=== PATIENT | female | born 1955 | race Caucasian/White ===

== ENCOUNTER 2020-05-23 11:45 | Inpatient (IN) | payer MEDICARE, OTHER, SELFPAY ==
[2020-05-23] VITALS (48 sets, daily range): BP systolic 123–156; BP diastolic 69–87; PULSE 72–107; RESP 14–35; TEMP 38.3; O2SAT 87–99
--- NOTE | 2020-05-23 11:49 | W.ED.SOB ---
HPI - SOB/Dyspnea General: Chief Complaint: Shortness of Breath/Dyspnea Stated Complaint: FEVER, COUGH, SOB Time Seen by Provider: 05/23/20 11:48 History of Present Illness: HPI Narrative: 64-year-old female comes in complaining of cough and shortness of breath. She talked her primary care doctor earlier in the week and recommended self quarantining. She is not been tested for COVID 19 at this point. Patient states started having symptoms about 2 days ago. She had a productive cough with thick white mucus. She feels like it is she she has the flu or might severe body aches all over. States her also has a fever but does not have a cough. She is also had some nausea. She has had loss of appetite. Decreased sense of taste and smell. She was seen in [place] in the emergency room 2 days ago in the evening there was a UA done but she was not ever seen she left with from the emergency emergency room waiting room without being seen they did call in some Bactrim for her which she did strip picker and start taking she is not been having any dysuria urgency or frequency since. MD elicited complaint: shortness of breath and cough Pertinent past history: other (Rheumatoid arthritis) Onset (ago): day(s) (2) Context: recent illness (Recently started treatment for cystitis) Timing: constant Severity: moderate Exacerbating factors: exertion, movement and coughing Relieving factors: nothing Associated symptoms: Reports chest congestion, chest pain, cough, dizziness, fever(s), lightheadedness, myalgias and nausea Treatment prior to arrival: none Review of Systems Const: Reports: fever(s) ENMT: Denies: throat pain, ear or mastoid pain, nasal discharge or nasal congestion Card: Reports: chest pain and lightheadedness Resp: Reports: chest congestion GI: Reports: nausea : Denies: flank pain, difficulty voiding, dysuria, urinary frequency or urinary urgency Skin/Breast: Denies: rash or pruritus Neuro: Reports: dizziness PFSH ED PFSH: Medical History (Updated 05/26/20 @ 07:32 by Vahe Santamaria DO) Elevated lipase Being worked up through primary care Hypothyroidism Rheumatoid arthritis Surgical History (Updated 05/23/20 @ 14:14 by Vahe Santamaria DO) H/O: hysterectomy Social History (Updated 05/23/20 @ 14:14 by OMERO Rothman Smoking and tobacco status: never smoked Alcohol intake: never Substance/Drug Use: never Physical Exam Const: COMMON NORMALS: no acute distress GENERAL APPEARANCE: cooperative and comfortable ORIENTATION/CONSCIOUSNESS: Yes awake, Yes oriented to person, Yes oriented to place and Yes oriented to time HENMT: COMMON NORMALS: normocephalic, atraumatic, hearing grossly normal bilaterally, external ears normal, EAC's normal, TM's normal bilaterally, Normal nasal mucous membranes and turbinates present, moist oral mucous membranes and oropharynx normal HEAD & SCALP: normocephalic and atraumatic NOSE: Normal nasal mucous membranes and turbinates present EXTERNAL EAR: Yes external ears normal EXTERNAL AUDITORY CANAL: EAC's normal TYMPANIC MEMBRANE: TM's normal bilaterally Eye: COMMON NORMALS: Equal, round and reactive pupils present, EOMs intact bilaterally, conjunctivae normal and no scleral icterus CONJUNCTIVA: Yes conjunctivae normal PUPIL: Yes Equal, round and reactive pupils present Neck/C-Spine: COMMON NORMALS: full ROM, no lymphadenopathy, supple and no JVD Lymph: LYMPHATIC: no lymphadenopathy noted and no lymphedema noted Resp: COMMON NORMALS: normal respiratory effort, No retractions, No use of accessory muscles and clear to auscultation bilaterally AUSCULTATION: clear to auscultation bilaterally Cardio: COMMON NORMALS: no JVD, regular rate, regular rhythm and No murmurs present (Cardio) RATE: regular rate RHYTHM: regular rhythm GI: COMMON NORMALS: Soft to palpation and No hepatosplenomegaly present AUSCULTATION: Yes normoactive bowel sounds PALPATION: Yes Soft to palpation, No Tenderness to palpation present (GI), No Guarding due to palpation present (GI) and Yes No hepatosplenomegaly present Extremity: COMMON NORMALS: normal to inspection, capillary refill normal, no clubbing, cyanosis or edema, no calf tenderness and no pedal edema Neuro: SENSORIUM/ORIENTATION: Yes oriented to person, Yes oriented to place and Yes oriented to time Skin: COMMON NORMALS: no rashes or lesions noted GENERAL SKIN EXAM: no rashes or lesions noted Course Vital Signs: Vital signs: Vital Signs Temperature 98.0 F 05/24/20 19:26 Pulse Rate 78 05/24/20 19:26 Respiratory Rate 18 05/24/20 19:26 Blood Pressure 120/74 05/24/20 19:26 Pulse Oximetry 98 05/24/20 19:26 MDM - SOB/Dyspnea MDM Narrative: Medical decision making narrative: Significant concern for COVID. Patient will be admitted for respiratory support she is under COVID precautions with droplet precautions. Discussed with Dr. Mcclain. Lab Data: Labs: Lab Results 05/23/20 05/23/20 05/23/20 Range/Units 12:04 12:04 12:04 WBC 5.1 (4.0-10.0) 10^3/ uL RBC 4.30 (4.1-5.3) 10^6/u L Hgb 13.1 (11.5-15.3) g/dL Hct 40.5 (37.0-47.0) % MCV 94.2 (81-99) fL MCH 30.5 (28.0-34.0) pg MCHC 32.3 (30.0-36.0) g/dL RDW 14.4 (12.1-15.1) % Plt Count 152 (130-400) 10^3/c mm MPV 11.3 H (7.4-10.4) fL Neut % (Auto) 73.5 % Lymph % (Auto) 14.7 % [place] % (Auto) 11.4 % Eos % (Auto) 0.0 % Baso % (Auto) 0.2 % Neut # (Auto) 3.76 (1.8-7.7) 10^3/u L Lymph # (Auto) 0.8 (0.8-4.8) 10^3/u L [place] # (Auto) 0.6 (0.2-0.9) 10^3/u L Eos # (Auto) 0.0 (0.0-0.8) 10^3/u L Baso # (Auto) 0.0 (0.0-0.1) 10^3/u L Nucleated RBC % (a uto) 0 % Nucleated RBCs # 0.0 /100WBC Fibrinogen 240 (184-529) mg/dL D-Dimer 0.87 H (0-0.59) ug/mIFE U Specimen Type Sample Site ABG pH (7.35-7.45) ABG pCO2 (35-45) mmHg ABG pO2 (80.0-100.0) mmH g ABG HCO3 (22-26) mmol/L ABG O2 Saturation ABG Base Excess (-2.0-2.0) mmol/ L Jaden Test A-a O2 Gradient (5-10) mmHg Hematocrit (37-47) % Hgb O2 Saturation (95-100) % Carboxyhemoglobin (0.4-20.1) %THgb Methemoglobin (0.4-1.5) % Total Hemoglobin (12-16) g/dL Ionized Calcium (1.1-1.4) mmol/L O2 Delivery Device FiO2 % Public Health Aides Teacher ID Sodium 137 (136-145) mmol/L Potassium 3.6 (3.5-5.1) mmol/L Chloride 103 (98-107) mmol/L Carbon Dioxide 24 (22-29) mmol/L Anion Gap 13.6 (5-19) BUN 7 L (8-23) mg/dL Creatinine 0.9 (0.5-0.9) mg/dL GFR Calculation 63.0 L (90-130) mL/min Glucose 97 (65-115) mg/dL Calculated Osmolal ity 280 L (285-295) mOsm/k g Lactic Acid (0.5-2.2) mmol/L Calcium 8.7 (8.5-10.5) mg/dL Ferritin 105 (15-150) ng/mL Total Bilirubin 0.4 (0.15-1.2) mg/dL AST 31 (0-32) U/L ALT 18 (0-33) U/L Alkaline Phosphata se 51 (35-105) IU/L Lactate Dehydrogen ase 321 H (135-214) U/L Creatine Kinase 231 H (26-192) U/L C-Reactive Protein 14.1 H (0.0-4.9) mg/L NT-Pro-B Natriuret Pep 476 H (0-125) pg/mL Total Protein 6.3 L (6.6-8.7) g/dL Albumin 4.1 (3.5-5.2) g/dL Globulin 2.2 (1.3-4.6) g/dL Procalcitonin 0.06 (0-0.5) ng/mL Nasal/Oral COVID-1 9 PCR Influenza Type A A g (Negative) Influenza Type B A g (Negative) 05/23/20 05/23/20 05/23/20 Range/Units 12:04 12:18 13:35 WBC (4.0-10.0) 10^3/ uL RBC (4.1-5.3) 10^6/u L Hgb (11.5-15.3) g/dL Hct (37.0-47.0) % MCV (81-99) fL MCH (28.0-34.0) pg MCHC (30.0-36.0) g/dL RDW (12.1-15.1) % Plt Count (130-400) 10^3/c mm MPV (7.4-10.4) fL Neut % (Auto) % Lymph % (Auto) % [place] % (Auto) % Eos % (Auto) % Baso % (Auto) % Neut # (Auto) (1.8-7.7) 10^3/u L Lymph # (Auto) (0.8-4.8) 10^3/u L [place] # (Auto) (0.2-0.9) 10^3/u L Eos # (Auto) (0.0-0.8) 10^3/u L Baso # (Auto) (0.0-0.1) 10^3/u L Nucleated RBC % (a uto) % Nucleated RBCs # /100WBC Fibrinogen (184-529) mg/dL D-Dimer (0-0.59) ug/mIFE U Specimen Type Arterial Sample Site Radial, right ABG pH 7.48 H (7.35-7.45) ABG pCO2 31.2 L (35-45) mmHg ABG pO2 60.2 L (80.0-100.0) mmH g ABG HCO3 23.2 (22-26) mmol/L ABG O2 Saturation 93.9 ABG Base Excess 0.4 (-2.0-2.0) mmol/ L Jaden Test Pos A-a O2 Gradient 49.3 H (5-10) mmHg Hematocrit 40.2 (37-47) % Hgb O2 Saturation 93.2 L (95-100) % Carboxyhemoglobin 0.7 (0.4-20.1) %THgb Methemoglobin 0.1 L (0.4-1.5) % Total Hemoglobin 13.1 (12-16) g/dL Ionized Calcium 1.1 (1.1-1.4) mmol/L O2 Delivery Device None FiO2 21.0 % Public Health Aides Teacher ID ed Sodium 139.0 (136-145) mmol/L Potassium 3.5 (3.5-5.1) mmol/L Chloride (98-107) mmol/L Carbon Dioxide (22-29) mmol/L Anion Gap (5-19) BUN (8-23) mg/dL Creatinine (0.5-0.9) mg/dL GFR Calculation (90-130) mL/min Glucose 95.0 (65-115) mg/dL Calculated Osmolal ity (285-295) mOsm/k g Lactic Acid 1.5 (0.5-2.2) mmol/L Calcium (8.5-10.5) mg/dL Ferritin (15-150) ng/mL Total Bilirubin (0.15-1.2) mg/dL AST (0-32) U/L ALT (0-33) U/L Alkaline Phosphata se (35-105) IU/L Lactate Dehydrogen ase (135-214) U/L Creatine Kinase (26-192) U/L C-Reactive Protein (0.0-4.9) mg/L NT-Pro-B Natriuret Pep (0-125) pg/mL Total Protein (6.6-8.7) g/dL Albumin (3.5-5.2) g/dL Globulin (1.3-4.6) g/dL Procalcitonin (0-0.5) ng/mL Nasal/Oral COVID-1 9 PCR Detected Influenza Type A A g (Negative) Influenza Type B A g (Negative) 05/23/20 Range/Units 14:00 WBC (4.0-10.0) 10^3/ uL RBC (4.1-5.3) 10^6/u L Hgb (11.5-15.3) g/dL Hct (37.0-47.0) % MCV (81-99) fL MCH (28.0-34.0) pg MCHC (30.0-36.0) g/dL RDW (12.1-15.1) % Plt Count (130-400) 10^3/c mm MPV (7.4-10.4) fL Neut % (Auto) % Lymph % (Auto) % [place] % (Auto) % Eos % (Auto) % Baso % (Auto) % Neut # (Auto) (1.8-7.7) 10^3/u L Lymph # (Auto) (0.8-4.8) 10^3/u L [place] # (Auto) (0.2-0.9) 10^3/u L Eos # (Auto) (0.0-0.8) 10^3/u L Baso # (Auto) (0.0-0.1) 10^3/u L Nucleated RBC % (a uto) % Nucleated RBCs # /100WBC Fibrinogen (184-529) mg/dL D-Dimer (0-0.59) ug/mIFE U Specimen Type Sample Site ABG pH (7.35-7.45) ABG pCO2 (35-45) mmHg ABG pO2 (80.0-100.0) mmH g ABG HCO3 (22-26) mmol/L ABG O2 Saturation ABG Base Excess (-2.0-2.0) mmol/ L Jaden Test A-a O2 Gradient (5-10) mmHg Hematocrit (37-47) % Hgb O2 Saturation (95-100) % Carboxyhemoglobin (0.4-20.1) %THgb Methemoglobin (0.4-1.5) % Total Hemoglobin (12-16) g/dL Ionized Calcium (1.1-1.4) mmol/L O2 Delivery Device FiO2 % Public Health Aides Teacher ID Sodium (136-145) mmol/L Potassium (3.5-5.1) mmol/L Chloride (98-107) mmol/L Carbon Dioxide (22-29) mmol/L Anion Gap (5-19) BUN (8-23) mg/dL Creatinine (0.5-0.9) mg/dL GFR Calculation (90-130) mL/min Glucose (65-115) mg/dL Calculated Osmolal ity (285-295) mOsm/k g Lactic Acid (0.5-2.2) mmol/L Calcium (8.5-10.5) mg/dL Ferritin (15-150) ng/mL Total Bilirubin (0.15-1.2) mg/dL AST (0-32) U/L ALT (0-33) U/L Alkaline Phosphata se (35-105) IU/L Lactate Dehydrogen ase (135-214) U/L Creatine Kinase (26-192) U/L C-Reactive Protein (0.0-4.9) mg/L NT-Pro-B Natriuret Pep (0-125) pg/mL Total Protein (6.6-8.7) g/dL Albumin (3.5-5.2) g/dL Globulin (1.3-4.6) g/dL Procalcitonin (0-0.5) ng/mL Nasal/Oral COVID-1 9 PCR Influenza Type A A g Negative (Negative) Influenza Type B A g Negative (Negative) Discharge Plan Discharge Patient Disposition: Placed in Observation Admit Provider: Dennis Winkler Clinical Impression: Pneumonitis, COVID-19 virus test result unknown, Rheumatoid arthritis, Immunocompromised patient, Elevated lipase Condition: Stable Discharge Diet: Regular Discharge Activity: Resume usual activity Interventions: ED Discharge Assessment Last Done: 05/23/20 17:39 ED Charges Last Done: 05/23/20 17:39 Discharge Date/Time: 05/23/20 19:02 Coding Level of Care Code ED Transcripter for Estrella Fwd Exam Comprehensive
--- NOTE | 2020-05-23 11:56 | XRR_ITS ---
PROCEDURE INFORMATION: Exam: XR Chest, 1 View Exam date and time: 05/23/2020 12:24 PM Age: 64 years old Clinical indication: Cough; Additional info: Dyspnea/cough TECHNIQUE: Imaging protocol: XR of the chest Views: 1 view. COMPARISON: CT angiography of the chest 05/23/2020 at 2:10 PM FINDINGS: Lungs: Mild patchy airspace opacities (atelectasis and/or consolidation) at bilateral lung bases, similar to comparison study (which was actually performed subsequent to this study). Pulmonary vasculature within normal limits. Pleural space: No visible pneumothorax or pleural effusion. Heart/Mediastinum: Heart size within normal limits. Bones/joints: No emergent findings identified. XR/XR chest 1V portable [id number] IMPRESSION: 1. Mild patchy airspace opacities (atelectasis and/or consolidation) at bilateral lung bases, similar to comparison study (which was actually performed subsequent to this study).
--- NOTE | 2020-05-23 11:56 | ECG_ITS ---
[facility] Test Date: 2020-05-23 Pat Name: Cassy Browne Department: Room: Gender: Female Flex O Writer Operator: : [id number] Requested By: Vahe Jaramillo Order Number: [id number] Angel Luis MD: Guzman Alexandre M.D. Measurements Intervals [place] Rate: 67 P: 19 SD: 128 QRS: 15 QRSD: 94 T: 30 QT: 362 QTc: 383 Interpretive Statements SINUS RHYTHM WITH SINUS ARRHYTHMIA ST DEVIATION AND MODERATE T-WAVE ABNORMALITY, CONSIDER ANTERIOR ISCHEMIA [-0.1+ mV T WAVE IN V3/V4] No previous ECG available for comparison Electronically Signed On 05-23-2020 22:49:03 CDT by Guzman Alexandre M.D. [id number]
[2020-05-23 12:17] LABS: Basophils % 0.2 %; Hematocrit 40.5 % (37.0-47.0); Hemoglobin 13.1 g/dL (11.5-15.3); Lymphocytes # 0.8 10^3/uL (0.8-4.8); Lymphocytes % 14.7 %; Mean Corpuscular HGB Conc 32.3 g/dL (30.0-36.0); Mean Corpuscular Hemoglobin 30.5 pg (28.0-34.0); Mean Corpuscular Volume 94.2 fL (81-99); Mean Platelet Volume 11.3 fL (7.4-10.4); Monocytes # 0.6 10^3/uL (0.2-0.9); Monocytes % 11.4 %; Neutrophils # 3.76 10^3/uL (1.8-7.7); Neutrophils % 73.5 %; Nucleated Red Blood Cells % 0 %; Platelet Count 152 10^3/cmm (130-400); Red Cell Distribution Width 14.4 % (12.1-15.1); White Blood Count 5.1 10^3/uL (4.0-10.0)
[2020-05-23 12:29] LABS: Fibrinogen 240 mg/dL (184-529)
[2020-05-23 12:30] LABS: ABG PCO2 31.2 mmHg (35-45); ABG PH Result 7.48 (7.35-7.45); Alveolar-Arterial Oxygen Gradi 49.3 mmHg (5-10); Arterial Blood Gas Hematocrit 40.2 % (37-47); Base Excess ABG 0.4 mmol/L (-2.0-2.0); Blood Gas Allen Test Pos; Blood Gas Sample Site Radial, right; Blood Gas Sample Type Arterial; Carboxyhemoglobin 0.7 %THgb (0.4-20.1); HCO3 ABG 23.2 mmol/L (22-26); HGB O2 Sat 93.2 % (95-100); Ionized Calcium Level - ABG 1.1 mmol/L (1.1-1.4); Methemoglobin 0.1 % (0.4-1.5); Oxygen Saturation ABG 93.9; PO2 ABG 60.2 mmHg (80.0-100.0); Potassium Level - ABG 3.5 mmol/L (3.5-5.0); Total Hemoglobin 13.1 g/dL (12-16)
[2020-05-23 12:32] LABS: D Dimer 0.87 ug/mIFEU (0-0.59)
[2020-05-23 12:37] LABS: Lactic Sepsis W/Reflex 1.5 mmol/L (0.5-2.2)
[2020-05-23 12:48] LABS: Alanine Aminotransferase 18 U/L (0-33); Albumin Level 4.1 g/dL (3.5-5.2); Alkaline Phosphatase 51 IU/L (35-105); Anion Gap 13.6 (5-19); Aspartate Amino Transferase 31 U/L (0-32); Blood Urea Nitrogen 7 mg/dL (8-23); Calcium 8.7 mg/dL (8.5-10.5); Carbon Dioxide 24 mmol/L (22-29); Chloride 103 mmol/L (98-107); Creatine Phosphokinase 231 U/L (26-192); Globulin 2.2 g/dL (1.3-4.6); Glucose 97 mg/dL (65-115); Lactate Dehydrogenase 321 U/L (135-214); NT Pro B Type Natriuretic Pept 476 pg/mL (0-125); Osmolality Calculated 280 mOsm/kg (285-295); Potassium 3.6 mmol/L (3.5-5.1); Sodium 137 mmol/L (136-145); Total Bilirubin 0.4 mg/dL (0.15-1.2); Total Protein 6.3 g/dL (6.6-8.7)
[2020-05-23 13:21] LABS: Procalcitonin 0.06 ng/mL (0-0.5)
[2020-05-23 13:31] LABS: C Reactive Protein 14.1 mg/L (0.0-4.9); Ferritin 105 ng/mL (15-150)
--- NOTE | 2020-05-23 13:42 | CTR_ITS ---
PROCEDURE INFORMATION: Exam: CT Angiography Chest With Contrast Exam date and time: 05/23/2020 1:45 PM Age: 64 years old Clinical indication: Cough; Additional info: Elevted d- dimer TECHNIQUE: Imaging protocol: Computed tomographic angiography of the chest with intravenous contrast. 3D rendering: MIP and/or 3D reconstructed images were created by the technologist. Radiation optimization: All CT scans at this facility use at least one of these dose optimization techniques: automated exposure control; mA and/or kV adjustment per patient size (includes targeted exams where dose is matched to clinical indication); or iterative reconstruction. Contrast material: OMNIPAQUE 350; Contrast volume: 95 ml; Contrast route: INTRAVENOUS (IV); COMPARISON: CR XR chest 1V portable [id number] 05/23/2020 12:07 PM FINDINGS: Pulmonary arteries: Normal. No pulmonary emboli. Aorta: Unremarkable. No aortic aneurysm. No aortic dissection. Thyroid: Prominent thyroid. Lungs: Several 1-1.5 cm focal hazy infiltrates in the mid and lower lung zones bilaterally. Additional patchy and reticular infiltrates or atelectasis lung bases posteriorly. Viral/COVID-19 pneumonitis not excluded. Pleural space: Unremarkable. No pneumothorax. No pleural effusion. Heart: Unremarkable. No cardiomegaly. No pericardial effusion. Lymph nodes: Unremarkable. No enlarged lymph nodes. Bones/joints: Unremarkable. No acute fracture. Soft tissues: Unremarkable. Other findings: Total DLP (mGy-cm): 561.81 CT/CT angio chest PE protcl [id number] IMPRESSION: 1.) No PE evident. 2.) Several 1-1.5 cm focal hazy infiltrates in the mid and lower lung zones bilaterally. Additional patchy and reticular infiltrates or atelectasis lung bases posteriorly. Viral/COVID-19 pneumonitis not excluded. 3.) Prominent thyroid. The Radiation Dose CTDIVOL = (mGy): DLP = 561.81 (mGy-cm)
[2020-05-23] MEDS: iohexol 350 mg/mL 100 mL Btl IV (14:21)
[2020-05-23 14:44] LABS: Influenza A by IFA Negative (Negative); Influenza B by IFA Negative (Negative)
[2020-05-23] MEDS: ondansetron 2 mg/ML SDV 2 mL 4 MG IVP (15:23)
[2020-05-23] MEDS: dexamethasone 10 mg/mL INJ 6 MG IVP (16:50)
--- NOTE | 2020-05-23 18:48 | P.HP_ITS ---
Providers/Chief Complaint Admitting Physician: Dennis Winkler MD Primary Care Provider: Noam Madrid MD Chief Complaint: FEVER, COUGH, SOB History of Present Illness Cassy Browne is a 64 year old female with past medical history of rheumatoid arthritis on immunomodulators, hypothyroidism presented to the ER today with ongoing fevers, myalgias, runny nose, cough and some slight chest tightness for last 5 days. Patient states she was at [facility] with similar complaints on evening in the ER for 5 hours but was not been able to get checked so came back home. She continued to feel worse and her also started having similar symptoms for the presented to the ER today. She is complaining of mild nausea but no vomiting. She denies of having any diarrhea, abdominal pain, dysuria. She complains of occasional headache but no photophobia, no neck stiffness but does complain of loss of sense of taste and smell for last 2 days. She is also been having high-grade fever at least going up to 101.2 for last 2 days along with chills. She states her symptoms have actually gotten worse in last 24 hours so she presented to the ER. Her blood work in the ER showed a hemoglobin of 13.1, white count of 5.1, d- dimer of 0.8, ABG showing a pH of 7.4, PO2 of 60.2, saturation of 93.9 on room air, CMP showing a sodium of 137, potassium of 3.6, creatinine of 0.9, LDH of 321, CPK of 231, CRP of 14.1, proBNP of 476, negative flu with CTA chest which was done for elevated d-dimer showing no PE but several 1 to 1.5 cm focal hazy infiltrates in mid and lower zone bilaterally along with patchy reticular infiltrates or atelectasis at lung bases posteriorly. As per the radiology read viral/COVID 19 pneumonitis could not be excluded. Because of the above hospital service was requested for admission. Review of Systems General: Reports: 10 or more systems reviewed and unremarkable except in HPI and below Const: Reports: fever(s), chills, body aches and malaise; Denies: change in appetite, change in weight, night sweats, diaphoresis, change in sleep pattern, daytime sleepiness or snoring Eyes: Reports: change in vision; Denies: blurry vision, photophobia, eye discomfort or eye discharge ENMT: Denies: throat pain, enlarged tonsils, hoarseness, mouth pain, oral sores, dry mouth, tinnitus, nasal congestion or post nasal drip Card: Reports: chest pain; Denies: palpitations, irregular heart rhythm, edema, swelling of feet/ankles, lightheadedness, syncope, pre-syncope, dyspnea on exertion, orthopnea, leg pain with exertion or acrocyanosis Resp: Reports: dyspnea and non-productive cough; Denies: productive cough, wheezing, stridor, pain on inspiration, change in phlegm color, hemoptysis or chest congestion GI: Denies: abdominal pain, nausea, vomiting, hematemesis, coffee ground emesis, dysphagia, heartburn, diarrhea, constipation, bloating, GI cramping, change in bowel habits, pain on defecation, hematochezia or melena : Denies: flank pain, dysuria, urinary frequency, urinary urgency, urinary hesitancy, nocturia or hematuria Musc: Denies: neck pain, back pain, extremity pain, joint pain, joint swel ling, joint redness, joint stiffness or limited range of motion Neuro: Reports: headache(s); Denies: numbness in extremities, weakness in extremities, sensory changes, lack of coordination, difficulty walking, frequent falls, dizziness, vertigo, confusion, Slurred speech present, difficulty communicating thoughts or seizure- like activity Psych: Denies: anxiety, depression, mood swings, panic attacks, hopelessness or irritability Endo: Denies: polyuria, polydipsia, tired all the time, cold intolerance, exc essive sweating, flushing or heat intolerance Herman/Lymph: Denies: easy bruising or easy bleeding All/Imm: Denies: tongue swelling, facial swelling or acute wheezing Medications/Allergies Home Medications Medication Instructions Recorded Confirmed Last Taken Type metoprolol tartrate 25 mg PO BID 05/23/20 05/23/20 05/23/20 History naproxen 500 mg PO DAILY 05/23/20 05/23/20 Unknown History upadacitinib [Rinvoq] 15 mg PO DAILY 05/23/20 05/23/20 05/23/20 History Allergies Allergy/AdvReac Type Severity Reaction Status Date / Time No Known Allergies Allergy Verified 05/23/20 11:59 PFSH Acute PFSH: Medical History (Updated 05/23/20 @ 18:54 by Dennis Winkler MD) Elevated lipase Being worked up through primary care Hypothyroidism Rheumatoid arthritis Surgical History (Updated 05/23/20 @ 14:14 by Vahe Santamaria DO) H/O: hysterectomy Social History (Updated 05/23/20 @ 14:14 by Vahe Santamaria DO) Smoking and tobacco status: never smoked Alcohol intake: never Substance/Drug Use: never Vitals/I&O/Wt Last Vital Signs Pulse 87 05/23/20 18:47 Resp 23 H 05/23/20 18:47 BP 132/84 05/23/20 18:47 Pulse Ox 93 05/23/20 18:47 Physical Exam Narrative: EXAM NARRATIVE: General: No acute distress, AO x3, looking tired, flushed HEENT: PERRLA, pupils bilaterally equal and reactive Chest: Normal vesicular breath sounds, bilateral lower zone rhonchi, occasional crackles, equal good air entry bilaterally CVS: S1-S2 regular, no murmurs, no tachycardia, no gallops, no rubs Abdomen: Soft, nontender, no organomegaly, bowel sounds present Neuro: No focal deficits, no facial deformity, AO x3, power 5/5 in all limbs Data : 05/23/20 12:04 05/23/20 12:04 Micro: Microbiology 05/23/20 16:33 Gram Stain - Final Sputum - Expectorated Sputum 05/23/20 12:04 Blood Culture - Preliminary Blood SPECIMEN COLLECTED 05/23/20 12:07 Blood Culture - Preliminary Blood SPECIMEN COLLECTED A&P Assessment and plan (1) COVID-19 virus test result unknown: Status: Acute (2) Pneumonitis: Status: Acute (3) Immunocompromised patient: Status: Acute (4) Hypothyroidism: Status: Acute (5) Rheumatoid arthritis: Status: Acute (6) Head ache: Status: Acute Additional A&P Information 64-year-old female with past medical history of rheumatoid arthritis on immunom odulator's comes with malaise, headache, loss of sense of taste and smell with fever with chills for last 4 days along with who is also having similar symptoms but less severe comes in because of cough and difficulty in breathing. Symptoms highly likely of possible COVID-19. CTA done in ER read by the radiologist as possible early viral/COVID-19 pneumonitis: Patient is saturating well on room air for now. Patient given IV Decadron in the ER. COVID-19 has been sent. Admit to viral ICU. Isolation precautions. Continue to follow markers. Will check ESR, CRP, LDH, ferritin, CPK, d-dimer, CBC, CMP tomorrow morning. Check urine Legionella, sputum culture, blood culture, urinalysis, urine culture, lactate with reflex, procalcitonin right now. Start patient on Decadron 6 mg IV daily till the test comes negative. We will also start patient on ascorbic acid, thiamine, zinc. Spiriva, Advair. Oxygen supplementation keeping saturation over 92%. ABG in a.m. along with chest x-rays. CTA negative for pulmonary embolism. D-dimer is stable will just do Lovenox for DVT prophylaxis. If it continues to worsen and of patient's breathing status worsens we will convert to full dose Lovenox. Hypertension: Continue with home dose of metoprolol. Hypothyroid: Patient is not on levothyroxine at home. Check TSH, free T4, free T3. Rheumatoid arthritis: Patient is on Immuno modulator which she takes daily. We will hold off for now. Patient is getting Decadron as well. Full code. Cardiac diet. Lovenox for DVT prophylaxis. Attestations Medical Necessity Statement*: More than 2 midnights for possible COVID pneumonitis. Time Spent in Patient Care: Greater than 35 minutes (>than 50% of time spent in counselling and/or direct pt care on unit) . Coding Level of Care Code Acute Stem Mounter for [facility] F[facility] Diagnoses COVID-19 virus test result unknown Z20.828 Pneumonitis J18.9 Immunocompromised patient D89.9 Hypothyroidism E03.9 Rheumatoid arthritis M06.9 Head ache R51
[2020-05-23] MEDS: ascorbic acid 500 mg Tablet PO (21:29)
[2020-05-23] MEDS: sodium chloride 0.9% 1,000 ML 50 ML IV (21:29)
[2020-05-23] MEDS: thiamine 100 mg Tablet PO (21:30)
[2020-05-23] MEDS: azithromycin 250 mg Tablet 500 MG PO (21:30)
[2020-05-23] MEDS: cefTRIAXone 1,000 MG in sodium chloride 0.9% (plus) 50 ML 100 MG IV (21:31)
[2020-05-23] MEDS: enoxaparin 40 mg/0.4 mL Syringe SUBCUT (21:31)
[2020-05-23] MEDS: zinc gluconate 50 mg Tablet PO (21:32)
[2020-05-23 21:53] LABS: Lactic Sepsis W/Reflex 1.4 mmol/L (0.5-2.2)
[2020-05-23 22:14] LABS: Thyroid Stimulating Hormone 0.16 uIU/mL (0.27-4.20)
[2020-05-23 22:37] LABS: Bilirubin Urine Neg (NEGATIVE); Blood Urine 2+ (Negative); Glucose Urine UA Norm (Normal); Ketones Urine 1+ (Negative); Leukocyte Esterase Urine Negative (Negative); Nitrate Urine Negative (Negative); Protein Urine Neg (Negative); Specific Gravity, Urine 1.005 (1.005-1.030); Urine Appearance Clear (CLEAR); Urine Color Straw (Yellow); Urobilinogen Urine Norm (Negative); pH Urine 6 (5-7)
[2020-05-23 22:38] LABS: RBC Urine 0-4 /hpf (0-2); WBC Urine 0-4 /hpf (0-5)
[2020-05-23 22:39] LABS: Add Urine Culture? No; Bacteria Urine TRACE; Mucus Urine TRACE; Squamous Epithelial Cell Urine 0-4 (0-5)
[2020-05-23] MEDS: famotidine 20 mg/2 mL INJ IVP (22:47)
[2020-05-23 23:39] LABS: Procalcitonin 0.07 ng/mL (0-0.5)
[2020-05-23 23:50] LABS: Iron 20 ug/dL (37-145); Percent Saturation 6.7 % (20-50); Total Iron Binding Capacity 298 mcg/dl; Unsaturated Iron Binding 278 ug/dL (112-347)
[2020-05-24] VITALS (58 sets, daily range): BP systolic 101–144; BP diastolic 58–93; PULSE 57–112; RESP 7–26; TEMP 36.6–37.2; O2SAT 89–100
[2020-05-24 05:56] LABS: ABG PCO2 35.2 mmHg (35-45); ABG PH Result 7.43 (7.35-7.45); Arterial Blood Gas Hematocrit 40.8 % (37-47); Base Excess ABG -0.9 mmol/L (-2.0-2.0); Blood Gas Sample Site Brachial, right; Blood Gas Sample Type Arterial; HCO3 ABG 23.1 mmol/L (22-26); Oxygen Device ROOM AIR; PO2 ABG 74.6 mmHg (80.0-100.0)
--- NOTE | 2020-05-24 06:00 | XRR_ITS ---
PROCEDURE INFORMATION: Exam: XR Chest, 1 View Exam date and time: 05/24/2020 6:02 AM Age: 64 years old Clinical indication: Dyspnea; Additional info: Pna TECHNIQUE: Imaging protocol: XR of the chest Views: 1 view. COMPARISON: CR XR chest 1V portable [id number] 05/23/2020 12:07 PM FINDINGS: Lungs: The lungs are clear bilaterally. Pulmonary vasculature within normal limits. Pleural space: No visible pneumothorax or pleural effusion. Heart/Mediastinum: Cardiomediastinal silhouette contour within normal limits. Bones/joints: No emergent findings identified. XR/XR chest 1V portable [id number] IMPRESSION: 1. No radiographic findings of acute cardiopulmonary disease.
[2020-05-24 06:50] LABS: Hematocrit 42.8 % (37.0-47.0); Hemoglobin 14.1 g/dL (11.5-15.3); Lymphocytes # 0.4 10^3/uL (0.8-4.8); Lymphocytes % 15.3 %; Mean Corpuscular HGB Conc 32.9 g/dL (30.0-36.0); Mean Corpuscular Hemoglobin 31.5 pg (28.0-34.0); Mean Corpuscular Volume 95.5 fL (81-99); Mean Platelet Volume 11.2 fL (7.4-10.4); Monocytes # 0.2 10^3/uL (0.2-0.9); Monocytes % 5.8 %; Neutrophils # 2.16 10^3/uL (1.8-7.7); Neutrophils % 78.5 %; Nucleated Red Blood Cells % 0 %; Platelet Count 159 10^3/cmm (130-400); Red Blood Count 4.48 10^6/uL (4.1-5.3); Red Cell Distribution Width 14.2 % (12.1-15.1); White Blood Count 2.8 10^3/uL (4.0-10.0)
[2020-05-24 06:56] LABS: D Dimer 0.87 ug/mIFEU (0-0.59)
[2020-05-24 06:59] LABS: C Reactive Protein 33.7 mg/L (0.0-4.9); Creatine Phosphokinase 267 U/L (26-192); Magnesium 2.1 mg/dL (1.7-2.3)
[2020-05-24 07:00] LABS: Alanine Aminotransferase 20 U/L (0-33); Albumin Level 4.2 g/dL (3.5-5.2); Alkaline Phosphatase 61 IU/L (35-105); Anion Gap 17.6 (5-19); Aspartate Amino Transferase 29 U/L (0-32); Blood Urea Nitrogen 8 mg/dL (8-23); Calcium 8.3 mg/dL (8.5-10.5); Carbon Dioxide 24 mmol/L (22-29); Chloride 102 mmol/L (98-107); Globulin 3.1 g/dL (1.3-4.6); Glucose 115 mg/dL (65-115); Osmolality Calculated 287 mOsm/kg (285-295); Potassium 3.6 mmol/L (3.5-5.1); Sodium 140 mmol/L (136-145); Total Bilirubin 0.4 mg/dL (0.15-1.2); Total Protein 7.3 g/dL (6.6-8.7)
[2020-05-24 07:02] LABS: Fibrinogen 348 mg/dL (184-529)
[2020-05-24 07:09] LABS: NT Pro B Type Natriuretic Pept 295 pg/mL (0-125); Procalcitonin 0.07 ng/mL (0-0.5)
[2020-05-24 07:11] LABS: Estmated Average Glucose 111; Hemoglobin A1C 5.5 % (4.0-6.0)
[2020-05-24 07:20] LABS: Chol HDL Ratio 2.78 mg/dL (0.0-4.40); Cholesterol 200 mg/dL (0-200); Ferritin 143 ng/mL (15-150); HDL Cholesterol 72 mg/dL (60-100); LDL Cholesterol Calculated 117 mg/dL (50-129); Lactate Dehydrogenase 347 U/L (135-214); Triglycerides 56 mg/dL (0-150); VLDL Cholestrol Calculation 11 mg/dL (0-30)
[2020-05-24] MEDS: albuterol 8 gm MDI 2 PUFF INHALATION (08:00)
[2020-05-24] MEDS: ascorbic acid 500 mg Tablet PO ×2 (08:22→17:02)
[2020-05-24] MEDS: metoprolol tartrate 25 mg Tablet PO ×2 (08:22→17:02)
[2020-05-24] MEDS: zinc gluconate 50 mg Tablet PO (08:23)
[2020-05-24] MEDS: thiamine 100 mg Tablet PO (08:23)
[2020-05-24] MEDS: dexamethasone 10 mg/mL INJ 5 MG IVP (08:36)
[2020-05-24] MEDS: famotidine 20 mg/2 mL INJ IVP (08:36)
[2020-05-24] MEDS: benzonatate 100 mg Capsule PO ×2 (10:50→17:02)
[2020-05-24] MEDS: sodium chloride 0.9% 1,000 ML 50 ML IV (14:53)
--- NOTE | 2020-05-24 18:43 | P.PN_ITS ---
Subjective Subjective: Interval history: No acute events overnight patient continues to do well. Remains on room air saturating well. COVID-19 results are still pending. Vitals/I&O/Wt Last Vital Signs Temp 98.0 F 05/24/20 16:00 Pulse 78 05/24/20 16:00 Resp 18 05/24/20 16:00 BP 120/74 05/24/20 16:00 Pulse Ox 98 05/24/20 16:00 05/24/20 05/24/20 05/24/20 06:59 14:59 22:59 Intake Total 480 / 720 1590 / 1590 322 / 1912 Output Total 1200 / 1600 600 / 600 400 / 1000 Balance -720 / -880 990 / 990 -78 / 912 Physical Exam Narrative: EXAM NARRATIVE: General: No acute distress, AO x3, looking tired, flushed HEENT: PERRLA, pupils bilaterally equal and reactive Chest: Normal vesicular breath sounds, bilateral lower zone rhonchi, occasional crackles, equal good air entry bilaterally CVS: S1-S2 regular, no murmurs, no tachycardia, no gallops, no rubs Abdomen: Soft, nontender, no organomegaly, bowel sounds present Neuro: No focal deficits, no facial deformity, AO x3, power 5/5 in all limbs Data : 05/24/20 06:30 05/24/20 06:30 Micro: Microbiology 05/23/20 16:33 Gram Stain - Final Sputum - Expectorated Sputum Sputum Culture - Preliminary 05/23/20 21:05 MRSA Culture - Final Nose 05/23/20 12:04 Blood Culture - Preliminary Blood NEGATIVE TO DATE 05/23/20 12:07 Blood Culture - Preliminary Blood NEGATIVE TO DATE 05/23/20 20:55 Legionella Urinary Antigen - Final Urine,Voided 05/23/20 20:55 Bacterial Antigens - Final Urine,Voided A&P Assessment and plan (1) COVID-19 virus test result unknown: Status: Acute (2) Pneumonitis: Status: Acute (3) Immunocompromised patient: Status: Acute (4) Hypothyroidism: Status: Acute (5) Rheumatoid arthritis: Status: Acute (6) Head ache: Status: Acute Additional A&P Information 64-year-old female with past medical history of rheumatoid arthritis on immunomodulator's comes with malaise, headache, loss of sense of taste and smell with fever with chills for last 4 days along with who is also having similar symptoms but less severe comes in because of cough and difficulty in breathing. Symptoms highly likely of possible COVID-19. CTA done in ER read by the radiologist as possible early viral/COVID-19 pneumonitis: Patient is saturating well on room air for now. Patient given IV Decadron in the ER. COVID-19 has been sent. Admit to viral ICU. Isolation precautions. Continue to follow markers. Will check ESR, CRP, LDH, ferritin, CPK, d-dimer, CBC, CMP tomorrow morning. Check urine Legionella, sputum culture, blood culture, urinalysis, urine culture, lactate with reflex, procalcitonin right now. Start patient on Decadron 6 mg IV daily till the test comes negative. We will also start patient on ascorbic acid, thiamine, zinc. Spiriva, Advair. Oxygen supplementation keeping saturation over 92%. ABG in a.m. along with chest x-rays. CTA negative for pulmonary embolism. D-dimer is stable will just do Lovenox for DVT prophylaxis. If it continues to worsen and of patient's breathing status worsens we will convert to full dose Lovenox. Hypertension: Continue with home dose of metoprolol. Hypothyroid: Patient is not on levothyroxine at home. Check TSH, free T4, free T3. Rheumatoid arthritis: Patient is on Immuno modulator which she takes daily. We will hold off for now. Patient is getting Decadron as well. Full code. Cardiac diet. Lovenox for DVT prophylaxis. Coding Level of Care Code Acute Desulfurizer Hand for [facility] Fwd Diagnoses COVID-19 virus test result unknown Z20.828 Pneumonitis J18.9 Immunocompromised patient D89.9 Hypothyroidism E03.9 Rheumatoid arthritis M06.9 Head ache R51
--- NOTE | 2020-05-24 18:53 | P.DS_ITS ---
Discharge Providers Date of Admission: 05/23/20 19:01 Date of Discharge: May 24, 2020 Attending Provider at Admission: Dennis Winkler MD Attending Provider at Discharge: Dennis Winkler MD Primary Care Provider: Noam Madrid MD Diagnoses at Discharge Discharge Diagnosis (1) COVID-19 virus test result unknown: Status: Acute (2) Pneumonitis: Status: Acute (3) Immunocompromised patient: Status: Acute (4) Hypothyroidism: Status: Acute (5) Rheumatoid arthritis: Status: Acute (6) Head ache: Status: Acute Reason for Visit Reason for Visit: FEVER, COUGH, SOB Hospital Course Discharge Summary: Cassy Browne is a 64 year old female with past medical history of rheumatoid arthritis on immunomodulators, hypothyroidism presented to the ER today with ongoing fevers, myalgias, runny nose, cough and some slight chest tightness for last 5 days. Patient states she was at [facility] with similar complaints on evening in the ER for 5 hours but was not been able to get checked so came back home. She continued to feel worse and her also started having similar symptoms for the presented to the ER today. She is complaining of mild nausea but no vomiting. She denies of having any diarrhea, abdominal pain, dysuria. She complains of occasional headache but no photophobia, no neck stiffness but does complain of loss of sense of taste and smell for last 2 days. She is also been having high-grade fever at least going up to 101.2 for last 2 days along with chills. She states her symptoms have actually gotten worse in last 24 hours so she presented to the ER. Her blood work in the ER showed a hemoglobin of 13.1, white count of 5.1, d- dimer of 0.8, ABG showing a pH of 7.4, PO2 of 60.2, saturation of 93.9 on room air, CMP showing a sodium of 137, potassium of 3.6, creatinine of 0.9, LDH of 321, CPK of 231, CRP of 14.1, proBNP of 476, negative flu with CTA chest which was done for elevated d-dimer showing no PE but several 1 to 1.5 cm focal hazy infiltrates in mid and lower zone bilaterally along with patchy reticular infiltrates or atelectasis at lung bases posteriorly. As per the radiology read viral/COVID 19 pneumonitis could not be excluded. Patient was admitted to the hospital in the VICU unit and was monitored overnight. Patient continued to remain on room air saturating around 98% both at rest and on exertion. Her inflammatory markers were acceptable as well. Her COVID-19 study was sent but the results are pending. As patient was doing well on room air and her energy levels were good she requested to be discharged so is been discharged hemodynamically stable condition. She has been discharged on prednisone taper which she has to take over next 2 weeks, zinc, ascorbic acid, multivitamin. She has been counseled and advised in detail regarding social distancing and self isolating. Physical Exam Narrative: EXAM NARRATIVE: General: No acute distress, AO x3 HEENT: PERRLA, pupils bilaterally equal and reactive Chest: Normal vesicular breath sounds, no added sounds, equal good air entry bilaterally CVS: S1-S2 regular, no murmurs, no tachycardia, no gallops, no rubs Abdomen: Soft, nontender, no organomegaly, bowel sounds present Neuro: No focal deficits, no facial deformity, AO x3, power 5/5 in all limbs Discharge Data Data Completed and Pending: Completed Studies During Hospitalization Category Date Time Status CT angio chest PE protcl [id number] Stat Cat Scan 05/23/20 13:42 Completed XR chest 1V bryan ble [id number] QAM Exams 05/24/20 06:00 Completed XR chest 1V bryan ble [id number] Stat Exams 05/23/20 11:56 Completed Pending at discharge Category Date Time Status Blood Culture Sta t Lab 05/23/20 12:04 Results Coronavirus Lab T est PTC Routine Lab 05/23/20 13:35 Received Interleukin 6 (IL -6) Serum Stat Lab 05/23/20 21:19 Received Sputum Culture an d Gram Stain Stat Lab 05/23/20 16:33 Results Labs from last 24 hours 05/24/20 05/24/20 05/24/20 06:30 06:30 06:30 WBC RBC Hgb Hct MCV MCH MCHC RDW Plt Count MPV Neut % (Auto) Lymph % (Auto) Worth % (Auto) Eos % (Auto) Baso % (Auto) Neut # (Auto) Lymph # (Auto) Worth # (Auto) Eos # (Auto) Baso # (Auto) Nucleated RBC % (a uto) Nucleated RBCs # Fibrinogen 348 D-Dimer 0.87 H Specimen Type Sample Site ABG pH ABG pCO2 ABG pO2 ABG HCO3 ABG Base Excess Jaden Test Hematocrit O2 Delivery Device Character Impersonator ID Sodium Potassium Chloride Carbon Dioxide Anion Gap BUN Creatinine GFR Calculation Glucose Estimat Average Gl ucose 111 Hemoglobin A1c 5.5 Calculated Osmolal ity Lactic Acid Calcium Magnesium Iron TIBC % Saturation Unsat Iron Binding Ferritin 143 Total Bilirubin AST ALT Alkaline Phosphata se Lactate Dehydrogen ase 347 H Creatine Kinase C-Reactive Protein NT-Pro-B Natriuret Pep 295 H Total Protein Albumin Globulin Triglycerides 56 Cholesterol 200 LDL Cholesterol, C alc 117 Total VLDL Cholest kira 11 HDL Cholesterol 72 Cholesterol/HDL Ra graciela 2.78 Procalcitonin 0.07 TSH Urine Color Urine Appearance Urine pH Ur Specific Gravit y Urine Protein Urine Glucose (UA) Urine Ketones Urine Blood Urine Nitrate Urine Bilirubin Urine Urobilinogen Ur Leukocyte Diaan ase Urine RBC Urine WBC Ur Squamous Epith Cells Urine Bacteria Urine Mucus 05/24/20 05/24/20 05/24/20 06:30 06:30 06:30 WBC 2.8 L RBC 4.48 Hgb 14.1 Hct 42.8 MCV 95.5 MCH 31.5 MCHC 32.9 RDW 14.2 Plt Count 159 MPV 11.2 H Neut % (Auto) 78.5 Lymph % (Auto) 15.3 Worth % (Auto) 5.8 Eos % (Auto) 0.0 Baso % (Auto) 0.0 Neut # (Auto) 2.16 Lymph # (Auto) 0.4 L Worth # (Auto) 0.2 Eos # (Auto) 0.0 Baso # (Auto) 0.0 Nucleated RBC % (a uto) 0 Nucleated RBCs # 0.0 Fibrinogen D-Dimer Specimen Type Sample Site ABG pH ABG pCO2 ABG pO2 ABG HCO3 ABG Base Excess Jaden Test Hematocrit O2 Delivery Device Character Impersonator ID Sodium 140 Potassium 3.6 Chloride 102 Carbon Dioxide 24 Anion Gap 17.6 BUN 8 Creatinine 0.9 GFR Calculation 63.0 L Glucose 115 Estimat Average Gl ucose Hemoglobin A1c Calculated Osmolal ity 287 Lactic Acid Calcium 8.3 L Magnesium 2.1 Iron TIBC % Saturation Unsat Iron Binding Ferritin Total Bilirubin 0.4 AST 29 ALT 20 Alkaline Phosphata se 61 Lactate Dehydrogen ase Creatine Kinase 267 H C-Reactive Protein 33.7 H NT-Pro-B Natriuret Pep Total Protein 7.3 Albumin 4.2 Globulin 3.1 Triglycerides Cholesterol LDL Cholesterol, C alc Total VLDL Cholest kira HDL Cholesterol Cholesterol/HDL Ra graciela Procalcitonin TSH Urine Color Urine Appearance Urine pH Ur Specific Gravit y Urine Protein Urine Glucose (UA) Urine Ketones Urine Blood Urine Nitrate Urine Bilirubin Urine Urobilinogen Ur Leukocyte Diana ase Urine RBC Urine WBC Ur Squamous Epith Cells Urine Bacteria Urine Mucus 05/24/20 05/23/20 05/23/20 05:46 21:19 21:19 WBC RBC Hgb Hct MCV MCH MCHC RDW Plt Count MPV Neut % (Auto) Lymph % (Auto) Worth % (Auto) Eos % (Auto) Baso % (Auto) Neut # (Auto) Lymph # (Auto) Worth # (Auto) Eos # (Auto) Baso # (Auto) Nucleated RBC % (a uto) Nucleated RBCs # Fibrinogen D-Dimer Specimen Type Arterial Sample Site Brachial, right ABG pH 7.43 ABG pCO2 35.2 ABG pO2 74.6 L ABG HCO3 23.1 ABG Base Excess -0.9 Jaden Test N/a Hematocrit 40.8 O2 Delivery Device Room air Character Impersonator ID hinja Sodium Potassium Chloride Carbon Dioxide Anion Gap BUN Creatinine GFR Calculation Glucose Estimat Average Gl ucose Hemoglobin A1c Calculated Osmolal ity Lactic Acid 1.4 Calcium Magnesium Iron TIBC % Saturation Unsat Iron Binding Ferritin Total Bilirubin AST ALT Alkaline Phosphata se Lactate Dehydrogen ase Creatine Kinase C-Reactive Protein NT-Pro-B Natriuret Pep Total Protein Albumin Globulin Triglycerides Cholesterol LDL Cholesterol, C alc Total VLDL Cholest kira HDL Cholesterol Cholesterol/HDL Ra graciela Procalcitonin TSH 0.16 L Urine Color Urine Appearance Urine pH Ur Specific Gravit y Urine Protein Urine Glucose (UA) Urine Ketones Urine Blood Urine Nitrate Urine Bilirubin Urine Urobilinogen Ur Leukocyte Diana ase Urine RBC Urine WBC Ur Squamous Epith Cells Urine Bacteria Urine Mucus 05/23/20 05/23/20 21:19 20:55 WBC RBC Hgb Hct MCV MCH MCHC RDW Plt Count MPV Neut % (Auto) Lymph % (Auto) Worth % (Auto) Eos % (Auto) Baso % (Auto) Neut # (Auto) Lymph # (Auto) Worth # (Auto) Eos # (Auto) Baso # (Auto) Nucleated RBC % (a uto) Nucleated RBCs # Fibrinogen D-Dimer Specimen Type Sample Site ABG pH ABG pCO2 ABG pO2 ABG HCO3 ABG Base Excess Jaden Test Hematocrit O2 Delivery Device Character Impersonator ID Sodium Potassium Chloride Carbon Dioxide Anion Gap BUN Creatinine GFR Calculation Glucose Estimat Average Gl ucose Hemoglobin A1c Calculated Osmolal ity Lactic Acid Calcium Magnesium Iron 20 L TIBC 298 % Saturation 6.7 L Unsat Iron Binding 278 Ferritin Total Bilirubin AST ALT Alkaline Phosphata se Lactate Dehydrogen ase Creatine Kinase C-Reactive Protein NT-Pro-B Natriuret Pep Total Protein Albumin Globulin Triglycerides Cholesterol LDL Cholesterol, C alc Total VLDL Cholest kira HDL Cholesterol Cholesterol/HDL Ra graciela Procalcitonin 0.07 TSH Urine Color Straw Urine Appearance Clear Urine pH 6 Ur Specific Gravit y 1.005 Urine Protein Neg Urine Glucose (UA) Norm Urine Ketones 1+ H Urine Blood 2+ H Urine Nitrate Negative Urine Bilirubin Neg Urine Urobilinogen Norm Ur Leukocyte Diana ase Negative Urine RBC 0-4 H Urine WBC 0-4 H Ur Squamous Epith Cells 0-4 H Urine Bacteria Trace Urine Mucus Trace Vitals: Last Vital Signs Temp 98.0 F 05/24/20 16:00 Pulse 78 05/24/20 16:00 Resp 18 05/24/20 16:00 BP 120/74 05/24/20 16:00 Pulse Ox 98 05/24/20 16:00 Discharge Plan Discharge Patient Disposition: Home, Self-Care Condition: Stable Prescriptions: New Spiriva with HandiHaler 18 mcg Capsule, W/Inhalation Device 18 mcg inhalation DAILY.RESPIRATORY Qty: 30 RF: 0 benzonatate 100 mg Capsule 100 mg PO TID PRN (Reason: Cough) Qty: 15 RF: 0 ascorbic acid (vitamin C) [Vitamin C] 500 mg Tablet 500 mg PO BID Qty: 30 RF: 0 zinc gluconate 50 mg Tablet 50 mg PO DAILY Qty: 30 RF: 0 thiamine mononitrate (vit B1) [Vitamin B-1 (mononitrate)] 100 mg Tablet 100 mg PO DAILY Qty: 30 RF: 0 fluticasone propion-salmeterol [Advair Diskus] 100-50 mcg/dose Blister With Device 1 puff inhalation BID.RESPIRATORY Qty: 10 RF: 0 azithromycin 250 mg Tablet 500 mg PO Q24H Qty: 10 RF: 0 prednisone 10 mg tablets,dose pack See Rx Instructions .ROUTE .COMPLEX Qty: 21 RF: 0 Continued naproxen 500 mg Tablet 500 mg PO DAILY RF: 0 metoprolol tartrate 25 mg Tablet 25 mg PO BID RF: 0 Held Rinvoq 15 mg Tablet Extended Release 24 Hr 15 mg PO DAILY RF: 0 Hold Instructions: Resume on 05/24/20. Discharge Orders: Discharge Order (Routine); Ordered 05/24/20 Ordered By: Dennis Winkler Referrals: Noam Madrid MD [Primary Care Provider] - 4-7 days Discharge Diet: Regular Discharge Activity: Resume usual activity Activity Restrictions/Additional Instructions: She has been discharged on prednisone taper which she has to take over next 2 weeks, zinc, ascorbic acid, multivitamin. She has been counseled and advised in detail regarding social distancing and self isolating. For now continue holding on the medication for rheumatoid arthritis for next 2 to 3 weeks. Discharge Attestations Time Spent in Discharge Care*: greater than 30 min Specific Discharge Activities: Specific discharge activities: educating patient, discussing with child support case officer/social workers/dc planners, documenting/other paperwork and evaluating patient/reviewing data Status at Discharge: Cognitive status at discharge: cognitively intact , Behavioral status at discharge: cooperative , Functional status at discharge: independent ambulation Overall status at discharge: patient is back to baseline Quality Metrics Clinical Quality Measures During this hospital stay, did patient experience: None Coding Level of Care Code Acute Opener Verifier [employer] for [employer] Fwd Diagnoses COVID-19 virus test result unknown Z20.828 Pneumonitis J18.9 Immunocompromised patient D89.9 Hypothyroidism E03.9 Rheumatoid arthritis M06.9 Head ache R51
[2020-05-24] MEDS: dexamethasone 4 mg/mL INJ IVP (20:12)
[2020-05-25 11:49] LABS: Coronavirus Lab Test PTC DETECTED
[2020-05-27 20:41] LABS: Interleukin 6 (IL-6) Serum 13.29 pg/mL (<5.00)
== END 2020-05-24 20:28 | disposition home or self-care (01) | DRG 177 ==
LOC: ER 12:33 → ICU 17:13
PROVIDERS: Admitting Provider Student in an Organized Health Care Education/Training Program; Emergency Provider Family Medicine; PCP Family Medicine; Visit Provider Student in an Organized Health Care Education/Training Program
DX: U07.1 COVID-19 (principal); J12.89 Other viral pneumonia; E03.9 Hypothyroidism, unspecified; M06.9 Rheumatoid arthritis, unspecified; I10 Essential (primary) hypertension
CPT/HCPCS: 12345; 36415; 36600; 71045; 71275; 80051; 80053; 80061; 81001; 82550; 82728; 82803; 82810; 83036; 83520; 83540; 83550; 83605; 83615; 83735; 83880; 83986; 84145; 84443; 85025; 85378; 85384; 86140; 86403; 87040; 87070; 87205; 87449; 87635; 87641; 87804; 93005; 94640; 96372; 96375; 99284; G0378; J0696; J1100; J1650; J2405; J3490; J7030; Q0144; Q9967

== ENCOUNTER 2020-05-26 17:48 | Emergency (ER) | payer MEDICARE, OTHER, SELFPAY ==
[2020-05-26] VITALS (10 sets, daily range): BP systolic 117–145; BP diastolic 66–78; PULSE 85–94; RESP 16–40; TEMP 37.4; O2SAT 91–98; BMI 31.9
--- NOTE | 2020-05-26 18:30 | XR_ITS ---
WS: [id number] PORTABLE CHEST HISTORY: cough COMPARISON: 05/24/2020 Pulmonary vasculature is increased. There are perihilar areas of increased opacification. No lobar co llapse. No pleural effusion or pneumothorax. Cardiac size: Mildly enlarged cardiac silhouette. Mediastinum/Aorta: Mild prominence of the mediastinum due to the adjacent infiltrates. Mild ectasia a martina. Osteopenia. XR/XR chest 1V portable [id number] IMPRESSION: 1. Perihilar opacifications probably pneumonia with superimposed mild CHF. 2. Mild cardiomegaly.
--- NOTE | 2020-05-26 18:32 | ECG_ITS ---
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 Measurements Intervals [place] Rate: 85 P: 38 AR: 159 QRS: 10 QRSD: 84 T: 57 QT: 318 QTc: 380 Interpretive Statements SINUS RHYTHM NONSPECIFIC T-WAVE ABNORMALITY Compared to ECG 05/23/2020 13:38:39 Sinus arrhythmia no longer present Possible ischemia no longer present T-wave abnormality still present Electronically Signed On 05-27-2020 20:26:52 CDT by Inge Nelson M.D. [email or web address]
[2020-05-26 18:56] LABS: ABG PCO2 32.1 mmHg (35-45); ABG PH Result 7.49 (7.35-7.45); Alveolar-Arterial Oxygen Gradi 55.1 mmHg (5-10); Arterial Blood Gas Hematocrit 41.6 % (37-47); Base Excess ABG 1.5 mmol/L (-2.0-2.0); Blood Gas Operator Identificat amh; Blood Gas Sample Site Brachial, right; Blood Gas Sample Type Arterial; HCO3 ABG 24.3 mmol/L (22-26); HGB O2 Sat 88.6 % (95-100); Ionized Calcium Level - ABG 1.1 mmol/L (1.1-1.4); Methemoglobin 0.6 % (0.4-1.5); Oxygen Device ROOM AIR; Oxygen Saturation ABG 90.1; PO2 ABG 52.8 mmHg (80.0-100.0); Total Hemoglobin 13.6 g/dL (12-16)
[2020-05-26 19:09] LABS: Hematocrit 41.9 % (37.0-47.0); Hemoglobin 13.4 g/dL (11.5-15.3); Lymphocytes # 0.4 10^3/uL (0.8-4.8); Lymphocytes % 10.2 %; Mean Corpuscular Volume 93.9 fL (81-99); Mean Platelet Volume 11.8 fL (7.4-10.4); Monocytes # 0.2 10^3/uL (0.2-0.9); Monocytes % 4.7 %; Neutrophils # 3.63 10^3/uL (1.8-7.7); Neutrophils % 84.4 %; Nucleated Red Blood Cells % 0 %; Platelet Count 130 10^3/cmm (130-400); Red Blood Count 4.46 10^6/uL (4.1-5.3); Red Cell Distribution Width 14.5 % (12.1-15.1); White Blood Count 4.3 10^3/uL (4.0-10.0)
[2020-05-26 19:19] LABS: Ketone (Acetest) Serum Negative (Negative)
[2020-05-26 19:20] LABS: Lactic Sepsis W/Reflex 1.5 mmol/L (0.5-2.2)
[2020-05-26 19:21] LABS: Alanine Aminotransferase 44 U/L (0-33); Alkaline Phosphatase 54 IU/L (35-105); Anion Gap 15.3 (5-19); Aspartate Amino Transferase 75 U/L (0-32); Blood Urea Nitrogen 11 mg/dL (8-23); Calcium 8.8 mg/dL (8.5-10.5); Carbon Dioxide 26 mmol/L (22-29); Chloride 99 mmol/L (98-107); Creatine Phosphokinase 184 U/L (26-192); Globulin 2.8 g/dL (1.3-4.6); Glucose 117 mg/dL (65-115); Lipase 91 U/L (13-60); Magnesium 1.9 mg/dL (1.7-2.3); Osmolality Calculated 281 mOsm/kg (285-295); Potassium 3.3 mmol/L (3.5-5.1); Sodium 137 mmol/L (136-145); Total Bilirubin 0.8 mg/dL (0.15-1.2); Total Protein 6.8 g/dL (6.6-8.7)
[2020-05-26 19:23] LABS: Troponin(5th) Baseline 35 ng/L (0-10)
--- NOTE | 2020-05-26 19:23 | USR_ITS ---
PROCEDURE INFORMATION: Exam: US Abdomen Complete Exam date and time: 05/26/2020 8:56 PM Age: 64 years old Clinical indication: Abdominal pain; Acute TECHNIQUE: Imaging protocol: Real-time ultrasound of the abdomen with image documentation. COMPARISON: CT chest abd pel w con* 05/26/2020 8:26 PM FINDINGS: Liver: Liver is normal size and shows normal uniform echogenicity. There is no focal abnormality within the liver. Gallbladder: Gallbladder is normal. There is no gallstone there is no gallbladder wall thickening or pericholecystic fluid. Common bile duct: Common bile duct measures 3 mm. Pancreas: The pancreas is normal. Right kidney: Right kidney is 10.6 cm in length and shows normal cortical thickness and echogenicity. No focal abnormality is seen in the right kidney. There is no hydronephrosis. Left kidney: Left kidney is 9.0 cm in length with normal cortical thickness and echogenicity. There is no focal abnormality in the left kidney. There is no hydronephrosis. Spleen: Spleen is normal. Aorta: Abdominal aorta has a normal diameter fat evidence of aneurysm. Inferior vena cava: Normal. US/US abdomen complete* [id number] IMPRESSION: No acute findings.
--- NOTE | 2020-05-26 19:37 | CTR_ITS ---
PROCEDURE INFORMATION: Exam: CT Chest With Contrast Exam date and time: 05/26/2020 8:17 PM Age: 64 years old Clinical indication: Nausea; Cough and fever; Patient HX: Covid +; Additional info: Pain TECHNIQUE: Imaging protocol: Computed tomography of the chest with intravenous contrast. Radiation optimization: All CT scans at this facility use at least one of these dose optimization techniques: automated exposure control; mA and/or kV adjustment per patient size (includes targeted exams where dose is matched to clinical indication); or iterative reconstruction. Contrast material: OMNI 300; Contrast volume: 95 ml; Contrast route: INTRAVENOUS (IV); COMPARISON: CT angio chest PE protcl [id number] 05/23/2020 2:09 PM RADIATION DOSE METRICS: Total DLP (mGy-cm): 1969.55 FINDINGS: Thyroid: There is a 1.5 cm sized nodule in the lower pole of the left lobe of the thyroid. Further evaluation with thyroid ultrasound is suggested. Lungs: There are areas of peripheral ground-glass opacity in both lungs which are nonspecific but are consistent with the clinical diagnosis of COVID-19. Pleural space: There are tiny bilateral pleural effusions. Heart: Unremarkable. No cardiomegaly. No pericardial effusion. Aorta: Thoracic aorta is normal without evidence of aneurysm or dissection. Lymph nodes: Unremarkable. No enlarged lymph nodes. Bones/joints: There are mild degenerative changes in the thoracic spine. Soft tissues: Unremarkable. IMPRESSION: Pulmonary infiltrates consistent with the clinical diagnosis of COVID-19. COMMENTS: Consistent with the [employer]'s Incidental Findings Committee white paper (J Am Chantal Radiol 2015): In patients aged 35 years and older with an incidental thyroid nodule equal to or greater than 1.[address], MRI or extrathyroidal US, further evaluation with dedicated thyroid US is recommended for patients with normal life expectancy and without comorbidities. For smaller nodules without suspicious features, no further evaluation or follow up is recommended. PROCEDURE INFORMATION: Exam: CT Abdomen And Pelvis With Contrast Exam date and time: 05/26/2020 8:17 PM Age: 64 years old Clinical indication: Nausea; Cough and fever; Patient HX: Covid +; Additional info: Pain TECHNIQUE: Imaging protocol: Computed tomography of the abdomen and pelvis with intravenous contrast. Radiation optimization: All CT scans at this facility use at least one of these dose optimization techniques: automated exposure control; mA and/or kV adjustment per patient size (includes targeted exams where dose is matched to clinical indication); or iterative reconstruction. Contrast material: OMNI 300; Contrast volume: 95 ml; Contrast route: INTRAVENOUS (IV); COMPARISON: CT angio chest PE protcl [id number] 05/23/2020 2:09 PM RADIATION DOSE METRICS: Total DLP (mGy-cm): 1968.55 FINDINGS: Liver: There is no focal abnormality within the liver. Gallbladder and bile ducts: The gallbladder is normal. Pancreas: The pancreas is normal. Spleen: The spleen is normal. Adrenals: The adrenal glands are normal. The adrenal glands are normal. Kidneys and ureters: There is a right renal collecting system calcification. The left kidney is normal. There is no evidence of hydronephrosis. Stomach and bowel: Mild diverticulosis is present in the distal colon. There is no evidence of colitis/diverticulitis. Appendix: A normal appendix is identified. Intraperitoneal space: There is a small amount of ascites in the pelvis. Vasculature: Unremarkable. No abdominal aortic aneurysm. Lymph nodes: Unremarkable. No enlarged lymph nodes. Bladder: Unremarkable as visualized. Reproductive: There has been a hysterectomy. Bones/joints: There is rotoscoliosis in the lower lumbar spine with degenerative changes in the facet joints and grade 1-2 spondylolisthesis at L4-L5 with spinal stenosis. Soft tissues: Unremarkable. CT/CT chest abd pel w con* IMPRESSION: 1. Degenerative changes in the lumbar spine. 2. Minimal ascites. 3. Right nephrolithiasis. 4. No acute finding Radiation Dose CTDIVOL = (mGy): DLP = 1969.55~1968.55 (mGy-cm)
--- NOTE | 2020-05-26 19:53 | W.ED.GENADLT ---
Documented by User: Alesha Mcallister 05/29/20 12:09 HPI - General Adult General: Chief complaint: Upper Respiratory Infection Stated complaint: POSITIVE COVID Time Seen by Provider: 05/26/20 18:29 Source: patient Mode of arrival: EMS Limitations: no limitations History of Present Illness: HPI narrative: Mrs. Browne is a 64-year-old female who comes in complaining of upper abdominal pain and vomiting. Patient also claims to be more short of breath than usual. Of note the patient was recently here admitted to the hospital and ultimately diagnosed with a COVID-19 infection. She states since going home she is not doing well because of the nausea and vomiting. She is uncertain about fever and she denies any other headache, or neck pain/stiffness. She states overall she just feeling poorly and cannot keep her medicines down. Associated symptoms: Reports nausea and vomiting; Deny chest pain, dyspnea, headache(s), rash, palpitations or syncope Review of Systems Const: Denies: fever(s) Eyes: Denies: change in vision ENMT: Denies: throat pain Card: Denies: chest pain, palpitations, syncope, pre-syncope or dyspnea on exertion Resp: Denies: dyspnea, productive cough or non-productive cough GI: Reports: abdominal pain, nausea and vomiting; Denies: diarrhea : Denies: flank pain, dysuria, urinary frequency or urinary urgency Musc: Denies: neck pain, back pain or extremity pain Skin/Breast: Denies: rash or pruritus Neuro: Denies: headache(s), numbness in extremities, weakness in extremities or dizziness Herman/Lymph: Denies: easy bruising or easy bleeding All/Imm: Denies: urticaria PFSH ED PFSH: Medical History Elevated lipase Being worked up through primary care Hypothyroidism Rheumatoid arthritis Surgical History H/O: hysterectomy Social History Smoking and tobacco status: never smoked Alcohol intake: never Physical Exam Const: COMMON NORMALS: no acute distress, patient oriented x3, no limitations, healthy appearing and well nourished GENERAL APPEARANCE: cooperative, well kempt and well developed HENMT: COMMON NORMALS: normocephalic, atraumatic, external ears normal, EAC's normal and Normal external nose present HEAD & SCALP: normal to inspection, normocephalic and atraumatic FACE & SINUS: normal facial exam and face symmetric NOSE: Normal external nose present and Normal nares present EXTERNAL EAR: Yes external ears normal EXTERNAL AUDITORY CANAL: EAC's normal MOUTH: Normal oral and palatal mucosa present, lip normal and tongue normal Eye: COMMON NORMALS: Equal, round and reactive pupils present and conjunctivae normal GENERAL EYE: appearance normal, both eyes and all related structures ALIGNMENT: Yes alignment normal PERIORBITAL: periorbital findings normal EYELID: eyelids normal CONJUNCTIVA: Yes conjunctivae normal SCLERA: sclerae normal PUPIL: Yes Equal, round and reactive pupils present Neck/C-Spine: COMMON NORMALS: full ROM, no lymphadenopathy, supple, no meningeal signs and no JVD GENERAL: Yes normal visual inspection and Yes trachea midline Chest: COMMONS NORMALS: normal inspection of the chest and normal palpation of entire chest wall Resp: COMMON NORMALS: normal respiratory effort, No retractions and No use of accessory muscles EFFORT & INSPECTION: Yes able to speak in complete sentences and Yes symmetric chest movement AUSCULTATION: no crackles, no rales, no rhonchi and no wheezes Cardio: COMMON NORMALS: no JVD, regular rate, regular rhythm, S1 normal heart sound present and S2 normal heart sound present RATE: regular rate RHYTHM: regular rhythm HEART SOUNDS: S1 normal heart sound present, S2 normal heart sound present, no click, no gallops, no murmurs, no rubs and abnormal split S2 GI: COMMON NORMALS: Soft to palpation and No hepatosplenomegaly present PALPATION: Yes Soft to palpation, No Tenderness to palpation present (GI), No Guarding due to palpation present (GI), No Rigid due to palpation, Yes No hepatosplenomegaly present, No Hernia present, No Palpable mass present and No Pulsatile mass present : COMMON NORMALS: Yes no CVA tenderness BLADDER/KIDNEY EXAM: Yes no CVA tenderness EXTERNAL FEMALE EXAM: No Hernia present Back/Pelvis: COMMON NORMALS: no CVA tenderness, thoracic and lumbar spine normal to inspection, no thoracic nor lumbar tenderness and thoraco-lumbar ROM normal Extremity: COMMON NORMALS: normal to inspection, full ROM, capillary refill normal, no joint enlargement, no clubbing, cyanosis or edema and no calf tenderness Neuro: COMMON NORMALS: patient oriented x3, CN's II-XII intact bilaterally, moves all extremities, no focal motor deficits and no sensory deficits noted MENINGEAL SIGNS: Yes no meningeal signs SPEECH: speech normal Psych: COMMON NORMALS: mental status grossly normal, Normal thought process present, cooperative, normal affect, speech normal and activity/motor behavior normal APPEARANCE: Yes well kempt SPEECH: Yes normal speech THOUGHT PROCESS: Normal thought process present Skin: COMMON NORMALS: no rashes or lesions noted, turgor normal, no jaundice, no petechiae and no mottling GENERAL SKIN EXAM: no rashes or lesions noted and turgor normal Course Vital Signs: Vital signs: Vital Signs Temperature 100.2 F H 05/27/20 02:30 Pulse Rate 197 H 05/27/20 04:28 Respiratory Rate 16 05/27/20 05:07 Blood Pressure 135/90 05/27/20 04:28 Pulse Oximetry 92 05/27/20 04:28 MDM - General Adult MDM Narrative: Medical decision making narrative: The case was reviewed with Dr. Thompson, he believes the patient needs to be transferred as she is now having vomiting, her chest x-ray is worsening and requiring oxygen. She is also more complicated because she has RA and has been on an immunomodulator drug and is now been placed on prednisone. I reviewed the case in full with Dr. August at [facility] and she agrees to accept the patient in transfer. Currently the patient is stable on 3 L nasal cannula oxygen and is not requiring any more support. Giving IV fluids and pain medicine for her abdominal pain otherwise she is stable. Lab Data: Attestation: I reviewed the patient's lab results. Labs: Lab Results 05/26/20 05/26/20 05/26/20 Range/Units 18:44 18:57 18:57 WBC 4.3 (4.0-10.0) 10^3/ uL RBC 4.46 (4.1-5.3) 10^6/u L Hgb 13.4 (11.5-15.3) g/dL Hct 41.9 (37.0-47.0) % MCV 93.9 (81-99) fL MCH 30.0 (28.0-34.0) pg MCHC 32.0 (30.0-36.0) g/dL RDW 14.5 (12.1-15.1) % Plt Count 130 (130-400) 10^3/c mm MPV 11.8 H (7.4-10.4) fL Neut % (Auto) 84.4 % Lymph % (Auto) 10.2 % [place] % (Auto) 4.7 % Eos % (Auto) 0.0 % Baso % (Auto) 0.0 % Neut # (Auto) 3.63 (1.8-7.7) 10^3/u L Lymph # (Auto) 0.4 L (0.8-4.8) 10^3/u L [place] # (Auto) 0.2 (0.2-0.9) 10^3/u L Eos # (Auto) 0.0 (0.0-0.8) 10^3/u L Baso # (Auto) 0.0 (0.0-0.1) 10^3/u L Nucleated RBC % (a uto) 0 % Nucleated RBCs # 0.0 /100WBC PT (10.5-13.3) SECO NDS INR (0.8-1.2) Specimen Type Arterial Sample Site Brachial, right ABG pH 7.49 H (7.35-7.45) ABG pCO2 32.1 L (35-45) mmHg ABG pO2 52.8 L (80.0-100.0) mmH g ABG HCO3 24.3 (22-26) mmol/L ABG O2 Saturation 90.1 ABG Base Excess 1.5 (-2.0-2.0) mmol/ L Jaden Test N/a A-a O2 Gradient 55.1 H (5-10) mmHg Hematocrit 41.6 (37-47) % Hgb O2 Saturation 88.6 L (95-100) % Carboxyhemoglobin 1.0 (0.4-20.1) %THgb Methemoglobin 0.6 (0.4-1.5) % Total Hemoglobin 13.6 (12-16) g/dL Sodium 138.0 137 (131-143) mmol/L Potassium 3.0 L 3.3 L (3.5-5.0) mmol/L Glucose 119.0 H 117 H (70-115) mg/dL Ionized Calcium 1.1 (1.1-1.4) mmol/L O2 Delivery Device Room air O2 Liters/Min % FiO2 21.0 % Delicatessen Manager ID amh Chloride 99 (98-107) mmol/L Carbon Dioxide 26 (22-29) mmol/L Anion Gap 15.3 (5-19) BUN 11 (8-23) mg/dL Creatinine 0.9 (0.5-0.9) mg/dL GFR Calculation 63.0 L (90-130) mL/min Calculated Osmolal ity 281 L (285-295) mOsm/k g Lactic Acid (0.5-2.2) mmol/L Calcium 8.8 (8.5-10.5) mg/dL Magnesium 1.9 (1.7-2.3) mg/dL Total Bilirubin 0.8 (0.15-1.2) mg/dL AST 75 H (0-32) U/L ALT 44 H (0-33) U/L Alkaline Phosphata se 54 (35-105) IU/L Creatine Kinase 184 (26-192) U/L Troponin T Baselin e (0-10) ng/L Troponin T 120 Min southern ute (0-10) ng/L Delta Troponin T (0-10) ABS# Troponin T Hi Sens 6Hr (0-10) ng/L Troponin T Hi Sens 6Hr Delta (0-12) ng/L NT-Pro-B Natriuret Pep (0-125) pg/mL Total Protein 6.8 (6.6-8.7) g/dL Albumin 4.0 (3.5-5.2) g/dL Globulin 2.8 (1.3-4.6) g/dL Lipase 91 H (13-60) U/L Urine Color (Yellow) Urine Appearance (CLEAR) Urine pH (5-7) Ur Specific Gravit y (1.005-1.030) Urine Protein (Negative) Urine Glucose (UA) (Normal) Urine Ketones (Negative) Urine Blood (Negative) Urine Nitrate (Negative) Urine Bilirubin (NEGATIVE) Urine Urobilinogen (Negative) mg/dL Ur Leukocyte Diana ase (Negative) Urine RBC (0-2) /hpf Urine WBC (0-5) /hpf Ur Squamous Epith Cells (0-5) Urine Bacteria (NONE) Urine Mucus Serum Ketones (Negative) 07/21/20 07/21/20 07/21/20 Range/Units 18:57 18:57 18:57 WBC (4.0-10.0) 10^3/ uL RBC (4.1-5.3) 10^6/u L Hgb (11.5-15.3) g/dL Hct (37.0-47.0) % MCV (81-99) fL MCH (28.0-34.0) pg MCHC (30.0-36.0) g/dL RDW (12.1-15.1) % Plt Count (130-400) 10^3/c mm MPV (7.4-10.4) fL Neut % (Auto) % Lymph % (Auto) % [place] % (Auto) % Eos % (Auto) % Baso % (Auto) % Neut # (Auto) (1.8-7.7) 10^3/u L Lymph # (Auto) (0.8-4.8) 10^3/u L [place] # (Auto) (0.2-0.9) 10^3/u L Eos # (Auto) (0.0-0.8) 10^3/u L Baso # (Auto) (0.0-0.1) 10^3/u L Nucleated RBC % (a uto) % Nucleated RBCs # /100WBC PT 12.40 (10.5-13.3) SECO NDS INR 0.90 (0.8-1.2) Specimen Type Sample Site ABG pH (7.35-7.45) ABG pCO2 (35-45) mmHg ABG pO2 (80.0-100.0) mmH g ABG HCO3 (22-26) mmol/L ABG O2 Saturation ABG Base Excess (-2.0-2.0) mmol/ L Jaden Test A-a O2 Gradient (5-10) mmHg Hematocrit (37-47) % Hgb O2 Saturation (95-100) % Carboxyhemoglobin (0.4-20.1) %THgb Methemoglobin (0.4-1.5) % Total Hemoglobin (12-16) g/dL Sodium (131-143) mmol/L Potassium (3.5-5.0) mmol/L Glucose (70-115) mg/dL Ionized Calcium (1.1-1.4) mmol/L O2 Delivery Device O2 Liters/Min % FiO2 % Delicatessen Manager ID Chloride (98-107) mmol/L Carbon Dioxide (22-29) mmol/L Anion Gap (5-19) BUN (8-23) mg/dL Creatinine (0.5-0.9) mg/dL GFR Calculation (90-130) mL/min Calculated Osmolal ity (285-295) mOsm/k g Lactic Acid 1.5 (0.5-2.2) mmol/L Calcium (8.5-10.5) mg/dL Magnesium (1.7-2.3) mg/dL Total Bilirubin (0.15-1.2) mg/dL AST (0-32) U/L ALT (0-33) U/L Alkaline Phosphata se (35-105) IU/L Creatine Kinase (26-192) U/L Troponin T Baselin e (0-10) ng/L Troponin T 120 Min southern [place] (0-10) ng/L Delta Troponin T (0-10) ABS# Troponin T Hi Sens 6Hr (0-10) ng/L Troponin T Hi Sens 6Hr Delta (0-12) ng/L NT-Pro-B Natriuret Pep (0-125) pg/mL Total Protein (6.6-8.7) g/dL Albumin (3.5-5.2) g/dL Globulin (1.3-4.6) g/dL Lipase (13-60) U/L Urine Color (Yellow) Urine Appearance (CLEAR) Urine pH (5-7) Ur Specific Gravit y (1.005-1.030) Urine Protein (Negative) Urine Glucose (UA) (Normal) Urine Ketones (Negative) Urine Blood (Negative) Urine Nitrate (Negative) Urine Bilirubin (NEGATIVE) Urine Urobilinogen (Negative) mg/dL Ur Leukocyte Diana ase (Negative) Urine RBC (0-2) /hpf Urine WBC (0-5) /hpf Ur Squamous Epith Cells (0-5) Urine Bacteria (NONE) Urine Mucus Serum Ketones Negative (Negative) 05/26/20 05/26/20 05/26/20 Range/Units 18:57 19:45 20:56 WBC (4.0-10.0) 10^3/ uL RBC (4.1-5.3) 10^6/u L Hgb (11.5-15.3) g/dL Hct (37.0-47.0) % MCV (81-99) fL MCH (28.0-34.0) pg MCHC (30.0-36.0) g/dL RDW (12.1-15.1) % Plt Count (130-400) 10^3/c mm MPV (7.4-10.4) fL Neut % (Auto) % Lymph % (Auto) % [place] % (Auto) % Eos % (Auto) % Baso % (Auto) % Neut # (Auto) (1.8-7.7) 10^3/u L Lymph # (Auto) (0.8-4.8) 10^3/u L [place] # (Auto) (0.2-0.9) 10^3/u L Eos # (Auto) (0.0-0.8) 10^3/u L Baso # (Auto) (0.0-0.1) 10^3/u L Nucleated RBC % (a uto) % Nucleated RBCs # /100WBC PT (10.5-13.3) SECO NDS INR (0.8-1.2) Specimen Type Sample Site ABG pH (7.35-7.45) ABG pCO2 (35-45) mmHg ABG pO2 (80.0-100.0) mmH g ABG HCO3 (22-26) mmol/L ABG O2 Saturation ABG Base Excess (-2.0-2.0) mmol/ L Jaden Test A-a O2 Gradient (5-10) mmHg Hematocrit (37-47) % Hgb O2 Saturation (95-100) % Carboxyhemoglobin (0.4-20.1) %THgb Methemoglobin (0.4-1.5) % Total Hemoglobin (12-16) g/dL Sodium (131-143) mmol/L Potassium (3.5-5.0) mmol/L Glucose (70-115) mg/dL Ionized Calcium (1.1-1.4) mmol/L O2 Delivery Device O2 Liters/Min % FiO2 % Delicatessen Manager ID Chloride (98-107) mmol/L Carbon Dioxide (22-29) mmol/L Anion Gap (5-19) BUN (8-23) mg/dL Creatinine (0.5-0.9) mg/dL GFR Calculation (90-130) mL/min Calculated Osmolal ity (285-295) mOsm/k g Lactic Acid (0.5-2.2) mmol/L Calcium (8.5-10.5) mg/dL Magnesium (1.7-2.3) mg/dL Total Bilirubin (0.15-1.2) mg/dL AST (0-32) U/L ALT (0-33) U/L Alkaline Phosphata se (35-105) IU/L Creatine Kinase (26-192) U/L Troponin T Baselin e 35 H (0-10) ng/L Troponin T 120 Min southern ute 33.52 H (0-10) ng/L Delta Troponin T -1.48 L (0-10) ABS# Troponin T Hi Sens 6Hr (0-10) ng/L Troponin T Hi Sens 6Hr Delta (0-12) ng/L NT-Pro-B Natriuret Pep (0-125) pg/mL Total Protein (6.6-8.7) g/dL Albumin (3.5-5.2) g/dL Globulin (1.3-4.6) g/dL Lipase (13-60) U/L Urine Color Dark yellow (Yellow) Urine Appearance Clear (CLEAR) Urine pH 5 (5-7) Ur Specific Gravit y 1.020 (1.005-1.030) Urine Protein Trace (Negative) Urine Glucose (UA) Norm (Normal) Urine Ketones Negative (Negative) Urine Blood 2+ H (Negative) Urine Nitrate Negative (Negative) Urine Bilirubin Neg (NEGATIVE) Urine Urobilinogen 8 H (Negative) mg/dL Ur Leukocyte Diana ase Negative (Negative) Urine RBC 0-4 H (0-2) /hpf Urine WBC None (0-5) /hpf Ur Squamous Epith Cells 0-4 H (0-5) Urine Bacteria Trace (NONE) Urine Mucus 2+ Serum Ketones (Negative) 05/27/20 05/27/20 05/27/20 Range/Units 00:10 00:10 03:40 WBC (4.0-10.0) 10^3/ uL RBC (4.1-5.3) 10^6/u L Hgb (11.5-15.3) g/dL Hct (37.0-47.0) % MCV (81-99) fL MCH (28.0-34.0) pg MCHC (30.0-36.0) g/dL RDW (12.1-15.1) % Plt Count (130-400) 10^3/c mm MPV (7.4-10.4) fL Neut % (Auto) % Lymph % (Auto) % [place] % (Auto) % Eos % (Auto) % Baso % (Auto) % Neut # (Auto) (1.8-7.7) 10^3/u L Lymph # (Auto) (0.8-4.8) 10^3/u L [place] # (Auto) (0.2-0.9) 10^3/u L Eos # (Auto) (0.0-0.8) 10^3/u L Baso # (Auto) (0.0-0.1) 10^3/u L Nucleated RBC % (a uto) % Nucleated RBCs # /100WBC PT (10.5-13.3) SECO NDS INR (0.8-1.2) Specimen Type Arterial Sample Site Radial, left ABG pH 7.43 (7.35-7.45) ABG pCO2 33.6 L (35-45) mmHg ABG pO2 47.6 L (80.0-100.0) mmH g ABG HCO3 22.4 (22-26) mmol/L ABG O2 Saturation ABG Base Excess -1.3 (-2.0-2.0) mmol/ L Jaden Test Pos A-a O2 Gradient (5-10) mmHg Hematocrit 41.0 (37-47) % Hgb O2 Saturation (95-100) % Carboxyhemoglobin (0.4-20.1) %THgb Methemoglobin (0.4-1.5) % Total Hemoglobin (12-16) g/dL Sodium (131-143) mmol/L Potassium (3.5-5.0) mmol/L Glucose (70-115) mg/dL Ionized Calcium (1.1-1.4) mmol/L O2 Delivery Device Not Reportable O2 Liters/Min 15.0 % FiO2 % Delicatessen Manager ID halpa Chloride (98-107) mmol/L Carbon Dioxide (22-29) mmol/L Anion Gap (5-19) BUN (8-23) mg/dL Creatinine (0.5-0.9) mg/dL GFR Calculation (90-130) mL/min Calculated Osmolal ity (285-295) mOsm/k g Lactic Acid (0.5-2.2) mmol/L Calcium (8.5-10.5) mg/dL Magnesium (1.7-2.3) mg/dL Total Bilirubin (0.15-1.2) mg/dL AST (0-32) U/L ALT (0-33) U/L Alkaline Phosphata se (35-105) IU/L Creatine Kinase (26-192) U/L Troponin T Baselin e (0-10) ng/L Troponin T 120 Min southern ute (0-10) ng/L Delta Troponin T (0-10) ABS# Troponin T Hi Sens 6Hr 33.95 H (0-10) ng/L Troponin T Hi Sens 6Hr Delta -1.05 L (0-12) ng/L NT-Pro-B Natriuret Pep 302 H (0-125) pg/mL Total Protein (6.6-8.7) g/dL Albumin (3.5-5.2) g/dL Globulin (1.3-4.6) g/dL Lipase (13-60) U/L Urine Color (Yellow) Urine Appearance (CLEAR) Urine pH (5-7) Ur Specific Gravit y (1.005-1.030) Urine Protein (Negative) Urine Glucose (UA) (Normal) Urine Ketones (Negative) Urine Blood (Negative) Urine Nitrate (Negative) Urine Bilirubin (NEGATIVE) Urine Urobilinogen (Negative) mg/dL Ur Leukocyte Diana ase (Negative) Urine RBC (0-2) /hpf Urine WBC (0-5) /hpf Ur Squamous Epith Cells (0-5) Urine Bacteria (NONE) Urine Mucus Serum Ketones (Negative) Imaging Data^: CXR: Attestation: I personally reviewed and interpreted this imaging study as follows: My impression: Increased interstitial infiltrates from previous. US: Radiologist's impression: [address] [address] Ultrasound Report Signed Patient: Cassy Browne Unit #: [id number] : 1955 Age/Sex: 64 / F ADM Date: 05/26/20 Loc: ER Room/Bed: Attending Dr: Ordering Provider/Ordering MD: Alesha Mcallister DO Date of Service: 05/26/20 Procedure(s): US abdomen complete* [id number] Accession Number(s): [id number] Report Number: [id number] PROCEDURE INFORMATION: Exam: US Abdomen Complete Exam date and time: 05/26/2020 8:56 PM Age: 64 years old Clinical indication: Abdominal pain; Acute TECHNIQUE: Imaging protocol: Real-time ultrasound of the abdomen with image documentation. COMPARISON: CT chest abd pel w con* 05/26/2020 8:26 PM FINDINGS: Liver: Liver is normal size and shows normal uniform echogenicity. There is no focal abnormality within the liver. Gallbladder: Gallbladder is normal. There is no gallstone there is no gallbladder wall thickening or pericholecystic fluid. Common bile duct: Common bile duct measures 3 mm. Pancreas: The pancreas is normal. Right kidney: Right kidney is 10.6 cm in length and shows normal cortical thickness and echogenicity. No focal abnormality is seen in the right kidney. There is no hydronephrosis. Left kidney: Left kidney is 9.0 cm in length with normal cortical thickness and echogenicity. There is no focal abnormality in the left kidney. There is no hydronephrosis. Spleen: Spleen is normal. Aorta: Abdominal aorta has a normal diameter fat evidence of aneurysm. Inferior vena cava: Normal. US/US abdomen complete* [id number] IMPRESSION: No acute findings. Dictated By: Luke Keys Signed By: Luke Keys Signed Date/Time: 05/26/202123 DD/ 21 CT Chest/Abdomen/Pelvis: Radiologist's impression: [address] [address] [address] Scan Report Signed Patient: Cassy Browne Unit #: [id number] : 1955 Age/Sex: 64 / F ADM Date: 05/26/20 Loc: ER Room/Bed: Attending Dr: Ordering Provider/Ordering MD: Alesha Mcallister DO Date of Service: 05/26/20 Procedure(s): CT chest abd pel w con* Accession Number(s): [id number] Report Number: [id number] PROCEDURE INFORMATION: Exam: CT Chest With Contrast Exam date and time: 05/26/2020 8:17 PM Age: 64 years old Clinical indication: Nausea; Cough and fever; Patient HX: Covid +; Additional info: Pain TECHNIQUE: Imaging protocol: Computed tomography of the chest with intravenous contrast. Radiation optimization: All CT scans at this facility use at least one of these dose optimization techniques: automated exposure control; mA and/or kV adjustment per patient size (includes targeted exams where dose is matched to clinical indication); or iterative reconstruction. Contrast material: OMNI 300; Contrast volume: 95 ml; Contrast route: INTRAVENOUS (IV); COMPARISON: CT angio chest PE protcl [id number] 05/23/2020 2:09 PM RADIATION DOSE METRICS: Total DLP (mGy-cm): 1969.55 FINDINGS: Thyroid: There is a 1.5 cm sized nodule in the lower pole of the left lobe of the thyroid. Further evaluation with thyroid ultrasound is suggested. Lungs: There are areas of peripheral ground-glass opacity in both lungs which are nonspecific but are consistent with the clinical diagnosis of COVID-19. Pleural space: There are tiny bilateral pleural effusions. Heart: Unremarkable. No cardiomegaly. No pericardial effusion. Aorta: Thoracic aorta is normal without evidence of aneurysm or dissection. Lymph nodes: Unremarkable. No enlarged lymph nodes. Bones/joints: There are mild degenerative changes in the thoracic spine. Soft tissues: Unremarkable. IMPRESSION: Pulmonary infiltrates consistent with the clinical diagnosis of COVID-19. COMMENTS: Consistent with the [employer]'s Incidental Findings Committee white paper (J Am Chantal Radiol 2015): In patients aged 35 years and older with an incidental thyroid nodule equal to or greater than 1.[address], MRI or extrathyroidal US, further evaluation with dedicated thyroid US is recommended for patients with normal life expectancy and without comorbidities. For smaller nodules without suspicious features, no further evaluation or follow up is recommended. PROCEDURE INFORMATION: Exam: CT Abdomen And Pelvis With Contrast Exam date and time: 05/26/2020 8:17 PM Age: 64 years old Clinical indication: Nausea; Cough and fever; Patient HX: Covid +; Additional info: Pain TECHNIQUE: Imaging protocol: Computed tomography of the abdomen and pelvis with intravenous contrast. Radiation optimization: All CT scans at this facility use at least one of these dose optimization techniques: automated exposure control; mA and/or kV adjustment per patient size (includes targeted exams where dose is matched to clinical indication); or iterative reconstruction. Contrast material: OMNI 300; Contrast volume: 95 ml; Contrast route: INTRAVENOUS (IV); COMPARISON: CT angio chest PE protcl [id number] 05/23/2020 2:09 PM RADIATION DOSE METRICS: Total DLP (mGy-cm): 1968.55 FINDINGS: Liver: There is no focal abnormality within the liver. Gallbladder and bile ducts: The gallbladder is normal. Pancreas: The pancreas is normal. Spleen: The spleen is normal. Adrenals: The adrenal glands are normal. The adrenal glands are normal. Kidneys and ureters: There is a right renal collecting system calcification. The left kidney is normal. There is no evidence of hydronephrosis. Stomach and bowel: Mild diverticulosis is present in the distal colon. There is no evidence of colitis/diverticulitis. Appendix: A normal appendix is identified. Intraperitoneal space: There is a small amount of ascites in the pelvis. Vasculature: Unremarkable. No abdominal aortic aneurysm. Lymph nodes: Unremarkable. No enlarged lymph nodes. Bladder: Unremarkable as visualized. Reproductive: There has been a hysterectomy. Bones/joints: There is rotoscoliosis in the lower lumbar spine with degenerative changes in the facet joints and grade 1-2 spondylolisthesis at L4-L5 with spinal stenosis. Soft tissues: Unremarkable. CT/CT chest abd pel w con* IMPRESSION: 1. Degenerative changes in the lumbar spine. 2. Minimal ascites. 3. Right nephrolithiasis. 4. No acute finding Radiation Dose CTDIVOL = (mGy): DLP = 1968.55 1968.55 (mGy-cm) Dictated By: Luke Keys Signed By: Luke Keys Signed Date/Time: 05/26/202118 DD/ 17 EKG Data^: EKG 1: Attestation: I personally reviewed and interpreted this EKG as follows: EKG interpretation date: 05/26/20 EKG interpretation time: 19:19 Interpretation: Normal sinus rhythm at 85 beats a minute, T waves inverted in V2 and V3, no other acute ST-T wave changes. Findings consistent with previous EKG. Computer generated interpretation: Abdomen Ultrasound 05/26/20 19:23 IMPRESSION: No acute findings. Chest/Abdomen/Pelvis CT 05/26/20 19:37 IMPRESSION: 1. Degenerative changes in the lumbar spine. 2. Minimal ascites. 3. Right nephrolithiasis. 4. No acute finding Radiation Dose CTDIVOL = (mGy): DLP = 1969.55~1969.55 (mGy-cm) Chest X-Ray 05/27/20 04:29 IMPRESSION: 1. Endotracheal tube is in the proximal RIGHT mainstem bronchus and needs to be retracted. 2. Increasing consolidation at the LEFT lung base may be the result of the endotracheal tube positioning or worsening pneumonia/edema. 3. Bilateral infiltrates, greatest perihilar. Pneumonia and edema within the differential. Emergency department was called concerning the endotracheal tube position. Patient has been transferred to a different hospital. 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 Chg Fwd Exam Comprehensive Documented by User: Remy Joya MD 05/27/20 04:31 HPI - General Adult General: Chief complaint: Upper Respiratory Infection Stated complaint: POSITIVE COVID Time Seen by Provider: 05/26/20 18:29 [facility] ED PFSH: Medical History Elevated lipase Being worked up through primary care Hypothyroidism Rheumatoid arthritis Surgical History H/O: hysterectomy Social History Smoking and tobacco status: never smoked Alcohol intake: never Procedures Intubation Time out performed: Yes sedative: Etomidate Mg Given: 20 paralytic: Rocuronium Mg Given: 15 Laryngoscope: [place] ET Tube Size: 7.5 ET Tube Uncuffed: Yes Tube Secured Depth (cm): 25 Tube Secured Location: teeth Tube Placement Confirmation: visualized tube passing through cords, equal breath sounds bilaterally and confirmation by capnometry Patient Tolerated Procedure: well Intubation Complications: none Course Vital Signs: Vital signs: Vital Signs Temperature 100.2 F H 05/27/20 02:30 Pulse Rate 197 H 05/27/20 04:28 Respiratory Rate 16 05/27/20 05:07 Blood Pressure 135/90 05/27/20 04:28 Pulse Oximetry 92 05/27/20 04:28 MDM - General Adult MDM Narrative: Medical decision making narrative: Patient's been awaiting transfer to another facility for cold-like symptoms. Patient's care admit under Dr. Fu who is since shift is ended and patient has been awaiting transfer. Patient heart rate increased I went and evaluated her. Patient stable this time and states she does have a history of A. fib and had not taken her medicine this evening. Patient's heart rate is currently 170 and is in A. fib with RVR. We will give her a Cardizem bolus and start her on a Cardizem drip at this time. Patient is having no chest pain. 0316 patient's heart rates improving on Cardizem drip and is now in the 130s. Patient's oxygenation saturation did drop and patient is placed on a oxygen mask at 15 L and pulse ox is now 91%. We will repeat an ABG at this time. 0343 patient's A. fib is improved and heart rates now in the 110s. Will place patient on high flow oxygen at this time. 0422 patient's oxygen sats Deteriorating even on high flow oxygen. [facility] pit operator requested intubation for transfer for stability. I believe this is also the best route as patient did rapidly deteriorate and is increasingly short of breath and has increased work of breathing here. Patient was intubated at this time EMS is here to transport to [facility]. Lab Data: Labs: Lab Results 05/26/20 05/26/20 05/26/20 Range/Units 18:44 18:57 18:57 WBC 4.3 (4.0-10.0) 10^3/ uL RBC 4.46 (4.1-5.3) 10^6/u L Hgb 13.4 (11.5-15.3) g/dL Hct 41.9 (37.0-47.0) % MCV 93.9 (81-99) fL MCH 30.0 (28.0-34.0) pg MCHC 32.0 (30.0-36.0) g/dL RDW 14.5 (12.1-15.1) % Plt Count 130 (130-400) 10^3/c mm MPV 11.8 H (7.4-10.4) fL Neut % (Auto) 84.4 % Lymph % (Auto) 10.2 % [place] % (Auto) 4.7 % Eos % (Auto) 0.0 % Baso % (Auto) 0.0 % Neut # (Auto) 3.63 (1.8-7.7) 10^3/u L Lymph # (Auto) 0.4 L (0.8-4.8) 10^3/u L [place] # (Auto) 0.2 (0.2-0.9) 10^3/u L Eos # (Auto) 0.0 (0.0-0.8) 10^3/u L Baso # (Auto) 0.0 (0.0-0.1) 10^3/u L Nucleated RBC % (a uto) 0 % Nucleated RBCs # 0.0 /100WBC PT (10.5-13.3) SECO NDS INR (0.8-1.2) Specimen Type Arterial Sample Site Brachial, right ABG pH 7.49 H (7.35-7.45) ABG pCO2 32.1 L (35-45) mmHg ABG pO2 52.8 L (80.0-100.0) mmH g ABG HCO3 24.3 (22-26) mmol/L ABG O2 Saturation 90.1 ABG Base Excess 1.5 (-2.0-2.0) mmol/ L Jaden Test N/a A-a O2 Gradient 55.1 H (5-10) mmHg Hematocrit 41.6 (37-47) % Hgb O2 Saturation 88.6 L (95-100) % Carboxyhemoglobin 1.0 (0.4-20.1) %THgb Methemoglobin 0.6 (0.4-1.5) % Total Hemoglobin 13.6 (12-16) g/dL Sodium 138.0 137 (131-143) mmol/L Potassium 3.0 L 3.3 L (3.5-5.0) mmol/L Glucose 119.0 H 117 H (70-115) mg/dL Ionized Calcium 1.1 (1.1-1.4) mmol/L O2 Delivery Device Room air O2 Liters/Min % FiO2 21.0 % Delicatessen Manager ID [email or web address] Chloride 99 (98-107) mmol/L Carbon Dioxide 26 (22-29) mmol/L Anion Gap 15.3 (5-19) BUN 11 (8-23) mg/dL Creatinine 0.9 (0.5-0.9) mg/dL GFR Calculation 63.0 L (90-130) mL/min Calculated Osmolal ity 281 L (285-295) mOsm/k g Lactic Acid (0.5-2.2) mmol/L Calcium 8.8 (8.5-10.5) mg/dL Magnesium 1.9 (1.7-2.3) mg/dL Total Bilirubin 0.8 (0.15-1.2) mg/dL AST 75 H (0-32) U/L ALT 44 H (0-33) U/L Alkaline Phosphata se 54 (35-105) IU/L Creatine Kinase 184 (26-192) U/L Troponin T Baselin e (0-10) ng/L Troponin T 120 Min [place] (0-10) ng/L Delta Troponin T (0-10) ABS# Troponin T Hi Sens 6Hr (0-10) ng/L Troponin T Hi Sens 6Hr Delta (0-12) ng/L NT-Pro-B Natriuret Pep (0-125) pg/mL Total Protein 6.8 (6.6-8.7) g/dL Albumin 4.0 (3.5-5.2) g/dL Globulin 2.8 (1.3-4.6) g/dL Lipase 91 H (13-60) U/L Urine Color (Yellow) Urine Appearance (CLEAR) Urine pH (5-7) Ur Specific Gravit y (1.005-1.030) Urine Protein (Negative) Urine Glucose (UA) (Normal) Urine Ketones (Negative) Urine Blood (Negative) Urine Nitrate (Negative) Urine Bilirubin (NEGATIVE) Urine Urobilinogen (Negative) mg/dL Ur Leukocyte Diana ase (Negative) Urine RBC (0-2) /hpf Urine WBC (0-5) /hpf Ur Squamous Epith Cells (0-5) Urine Bacteria (NONE) Urine Mucus Serum Ketones (Negative) 05/26/20 05/26/20 05/26/20 Range/Units 18:57 18:57 18:57 WBC (4.0-10.0) 10^3/ uL RBC (4.1-5.3) 10^6/u L Hgb (11.5-15.3) g/dL Hct (37.0-47.0) % MCV (81-99) fL MCH (28.0-34.0) pg MCHC (30.0-36.0) g/dL RDW (12.1-15.1) % Plt Count (130-400) 10^3/c mm MPV (7.4-10.4) fL Neut % (Auto) % Lymph % (Auto) % [place] % (Auto) % Eos % (Auto) % Baso % (Auto) % Neut # (Auto) (1.8-7.7) 10^3/u L Lymph # (Auto) (0.8-4.8) 10^3/u L [place] # (Auto) (0.2-0.9) 10^3/u L Eos # (Auto) (0.0-0.8) 10^3/u L Baso # (Auto) (0.0-0.1) 10^3/u L Nucleated RBC % (a uto) % Nucleated RBCs # /100WBC PT 12.40 (10.5-13.3) SECO NDS INR 0.90 (0.8-1.2) Specimen Type Sample Site ABG pH (7.35-7.45) ABG pCO2 (35-45) mmHg ABG pO2 (80.0-100.0) mmH g ABG HCO3 (22-26) mmol/L ABG O2 Saturation ABG Base Excess (-2.0-2.0) mmol/ L Jaden Test A-a O2 Gradient (5-10) mmHg Hematocrit (37-47) % Hgb O2 Saturation (95-100) % Carboxyhemoglobin (0.4-20.1) %THgb Methemoglobin (0.4-1.5) % Total Hemoglobin (12-16) g/dL Sodium (131-143) mmol/L Potassium (3.5-5.0) mmol/L Glucose (70-115) mg/dL Ionized Calcium (1.1-1.4) mmol/L O2 Delivery Device O2 Liters/Min % FiO2 % Delicatessen Manager ID Chloride (98-107) mmol/L Carbon Dioxide (22-29) mmol/L Anion Gap (5-19) BUN (8-23) mg/dL Creatinine (0.5-0.9) mg/dL GFR Calculation (90-130) mL/min Calculated Osmolal ity (285-295) mOsm/k g Lactic Acid 1.5 (0.5-2.2) mmol/L Calcium (8.5-10.5) mg/dL Magnesium (1.7-2.3) mg/dL Total Bilirubin (0.15-1.2) mg/dL AST (0-32) U/L ALT (0-33) U/L Alkaline Phosphata se (35-105) IU/L Creatine Kinase (26-192) U/L Troponin T Baselin e (0-10) ng/L Troponin T 120 Min [place] (0-10) ng/L Delta Troponin T (0-10) ABS# Troponin T Hi Sens 6Hr (0-10) ng/L Troponin T Hi Sens 6Hr Delta (0-12) ng/L NT-Pro-B Natriuret Pep (0-125) pg/mL Total Protein (6.6-8.7) g/dL Albumin (3.5-5.2) g/dL Globulin (1.3-4.6) g/dL Lipase (13-60) U/L Urine Color (Yellow) Urine Appearance (CLEAR) Urine pH (5-7) Ur Specific Gravit y (1.005-1.030) Urine Protein (Negative) Urine Glucose (UA) (Normal) Urine Ketones (Negative) Urine Blood (Negative) Urine Nitrate (Negative) Urine Bilirubin (NEGATIVE) Urine Urobilinogen (Negative) mg/dL Ur Leukocyte Diana ase (Negative) Urine RBC (0-2) /hpf Urine WBC (0-5) /hpf Ur Squamous Epith Cells (0-5) Urine Bacteria (NONE) Urine Mucus Serum Ketones Negative (Negative) 05/26/20 05/26/20 05/26/20 Range/Units 18:57 19:45 20:56 WBC (4.0-10.0) 10^3/ uL RBC (4.1-5.3) 10^6/u L Hgb (11.5-15.3) g/dL Hct (37.0-47.0) % MCV (81-99) fL MCH (28.0-34.0) pg MCHC (30.0-36.0) g/dL RDW (12.1-15.1) % Plt Count (130-400) 10^3/c mm MPV (7.4-10.4) fL Neut % (Auto) % Lymph % (Auto) % [place] % (Auto) % Eos % (Auto) % Baso % (Auto) % Neut # (Auto) (1.8-7.7) 10^3/u L Lymph # (Auto) (0.8-4.8) 10^3/u L [place] # (Auto) (0.2-0.9) 10^3/u L Eos # (Auto) (0.0-0.8) 10^3/u L Baso # (Auto) (0.0-0.1) 10^3/u L Nucleated RBC % (a uto) % Nucleated RBCs # /100WBC PT (10.5-13.3) SECO NDS INR (0.8-1.2) Specimen Type Sample Site ABG pH (7.35-7.45) ABG pCO2 (35-45) mmHg ABG pO2 (80.0-100.0) mmH g ABG HCO3 (22-26) mmol/L ABG O2 Saturation ABG Base Excess (-2.0-2.0) mmol/ L Jaden Test A-a O2 Gradient (5-10) mmHg Hematocrit (37-47) % Hgb O2 Saturation (95-100) % Carboxyhemoglobin (0.4-20.1) %THgb Methemoglobin (0.4-1.5) % Total Hemoglobin (12-16) g/dL Sodium (131-143) mmol/L Potassium (3.5-5.0) mmol/L Glucose (70-115) mg/dL Ionized Calcium (1.1-1.4) mmol/L O2 Delivery Device O2 Liters/Min % FiO2 % Delicatessen Manager ID Chloride (98-107) mmol/L Carbon Dioxide (22-29) mmol/L Anion Gap (5-19) BUN (8-23) mg/dL Creatinine (0.5-0.9) mg/dL GFR Calculation (90-130) mL/min Calculated Osmolal ity (285-295) mOsm/k g Lactic Acid (0.5-2.2) mmol/L Calcium (8.5-10.5) mg/dL Magnesium (1.7-2.3) mg/dL Total Bilirubin (0.15-1.2) mg/dL AST (0-32) U/L ALT (0-33) U/L Alkaline Phosphata se (35-105) IU/L Creatine Kinase (26-192) U/L Troponin T Baselin e 35 H (0-10) ng/L Troponin T 120 Min [place] 33.52 H (0-10) ng/L Delta Troponin T -1.48 L (0-10) ABS# Troponin T Hi Sens 6Hr (0-10) ng/L Troponin T Hi Sens 6Hr Delta (0-12) ng/L NT-Pro-B Natriuret Pep (0-125) pg/mL Total Protein (6.6-8.7) g/dL Albumin (3.5-5.2) g/dL Globulin (1.3-4.6) g/dL Lipase (13-60) U/L Urine Color Dark yellow (Yellow) Urine Appearance Clear (CLEAR) Urine pH 5 (5-7) Ur Specific Gravit y 1.020 (1.005-1.030) Urine Protein Trace (Negative) Urine Glucose (UA) Norm (Normal) Urine Ketones Negative (Negative) Urine Blood 2+ H (Negative) Urine Nitrate Negative (Negative) Urine Bilirubin Neg (NEGATIVE) Urine Urobilinogen 8 H (Negative) mg/dL Ur Leukocyte Diana ase Negative (Negative) Urine RBC 0-4 H (0-2) /hpf Urine WBC None (0-5) /hpf Ur Squamous Epith Cells 0-4 H (0-5) Urine Bacteria Trace (NONE) Urine Mucus 2+ Serum Ketones (Negative) 05/27/20 05/27/20 05/27/20 Range/Units 00:10 00:10 03:40 WBC (4.0-10.0) 10^3/ uL RBC (4.1-5.3) 10^6/u L Hgb (11.5-15.3) g/dL Hct (37.0-47.0) % MCV (81-99) fL MCH (28.0-34.0) pg MCHC (30.0-36.0) g/dL RDW (12.1-15.1) % Plt Count (130-400) 10^3/c mm MPV (7.4-10.4) fL Neut % (Auto) % Lymph % (Auto) % [place] % (Auto) % Eos % (Auto) % Baso % (Auto) % Neut # (Auto) (1.8-7.7) 10^3/u L Lymph # (Auto) (0.8-4.8) 10^3/u L [place] # (Auto) (0.2-0.9) 10^3/u L Eos # (Auto) (0.0-0.8) 10^3/u L Baso # (Auto) (0.0-0.1) 10^3/u L Nucleated RBC % (a uto) % Nucleated RBCs # /100WBC PT (10.5-13.3) SECO NDS INR (0.8-1.2) Specimen Type Arterial Sample Site Radial, left ABG pH 7.43 (7.35-7.45) ABG pCO2 33.6 L (35-45) mmHg ABG pO2 47.6 L (80.0-100.0) mmH g ABG HCO3 22.4 (22-26) mmol/L ABG O2 Saturation ABG Base Excess -1.3 (-2.0-2.0) mmol/ L Jaden Test Pos A-a O2 Gradient (5-10) mmHg Hematocrit 41.0 (37-47) % Hgb O2 Saturation (95-100) % Carboxyhemoglobin (0.4-20.1) %THgb Methemoglobin (0.4-1.5) % Total Hemoglobin (12-16) g/dL Sodium (131-143) mmol/L Potassium (3.5-5.0) mmol/L Glucose (70-115) mg/dL Ionized Calcium (1.1-1.4) mmol/L O2 Delivery Device Not Reportable O2 Liters/Min 15.0 % FiO2 % Delicatessen Manager ID [email or web address] Chloride (98-107) mmol/L Carbon Dioxide (22-29) mmol/L Anion Gap (5-19) BUN (8-23) mg/dL Creatinine (0.5-0.9) mg/dL GFR Calculation (90-130) mL/min Calculated Osmolal ity (285-295) mOsm/k g Lactic Acid (0.5-2.2) mmol/L Calcium (8.5-10.5) mg/dL Magnesium (1.7-2.3) mg/dL Total Bilirubin (0.15-1.2) mg/dL AST (0-32) U/L ALT (0-33) U/L Alkaline Phosphata se (35-105) IU/L Creatine Kinase (26-192) U/L Troponin T Baselin e (0-10) ng/L Troponin T 120 Min [place] (0-10) ng/L Delta Troponin T (0-10) ABS# Troponin T Hi Sens 6Hr 33.95 H (0-10) ng/L Troponin T Hi Sens 6Hr Delta -1.05 L (0-12) ng/L NT-Pro-B Natriuret Pep 302 H (0-125) pg/mL Total Protein (6.6-8.7) g/dL Albumin (3.5-5.2) g/dL Globulin (1.3-4.6) g/dL Lipase (13-60) U/L Urine Color (Yellow) Urine Appearance (CLEAR) Urine pH (5-7) Ur Specific Gravit y (1.005-1.030) Urine Protein (Negative) Urine Glucose (UA) (Normal) Urine Ketones (Negative) Urine Blood (Negative) Urine Nitrate (Negative) Urine Bilirubin (NEGATIVE) Urine Urobilinogen (Negative) mg/dL Ur Leukocyte Diana ase (Negative) Urine RBC (0-2) /hpf Urine WBC (0-5) /hpf Ur Squamous Epith Cells (0-5) Urine Bacteria (NONE) Urine Mucus Serum Ketones (Negative) EKG Data^: EKG 1: Computer generated interpretation: Abdomen Ultrasound 05/26/20 19:23 IMPRESSION: No acute findings. Chest/Abdomen/Pelvis CT 05/26/20 19:37 IMPRESSION: 1. Degenerative changes in the lumbar spine. 2. Minimal ascites. 3. Right nephrolithiasis. 4. No acute finding Radiation Dose CTDIVOL = (mGy): DLP = 1969.55~1969.55 (mGy-cm) Chest X-Ray 05/27/20 04:29 IMPRESSION: 1. Endotracheal tube is in the proximal RIGHT mainstem bronchus and needs to be retracted. 2. Increasing consolidation at the LEFT lung base may be the result of the endotracheal tube positioning or worsening pneumonia/edema. 3. Bilateral infiltrates, greatest perihilar. Pneumonia and edema within the differential. Emergency department was called concerning the endotracheal tube position. Patient has been transferred to a different hospital. Critical Care Time Critical Care Time: Critical Care Time: Yes Total Critical Care Time: 36 Attestation: This case had a high probability of a clinically significant, sudden, or life threatening deterioration of this patient's condition which required my full and direct attention, intervention and personal management. 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 Chg Fwd Exam Comprehensive
[2020-05-26] MEDS: morphine 4 mg/mL SDV 1 mL IVP ×3 (20:13→23:22)
[2020-05-26] MEDS: ondansetron 2 mg/ML SDV 2 mL 4 MG IVP (20:17)
[2020-05-26] MEDS: sodium chloride 0.9% 1,000 ML 100 ML IV (20:17)
[2020-05-26 20:18] LABS: Protein Urine Trace (Negative); Urine Appearance Clear (CLEAR); Urine Color Dark Yellow (Yellow); pH Urine 5 (5-7)
[2020-05-26] MEDS: iohexol 300 mg/mL 100 mL Btl IV (20:18)
[2020-05-26 20:19] LABS: Bilirubin Urine Neg (NEGATIVE); Blood Urine 2+ (Negative); Glucose Urine UA Norm (Normal); Ketones Urine Negative (Negative); Leukocyte Esterase Urine Negative (Negative); Nitrate Urine Negative (Negative); Urobilinogen Urine 8 mg/dL (Negative)
[2020-05-26 20:20] LABS: Add Urine Culture? No; Bacteria Urine TRACE; Mucus Urine 2+; RBC Urine 0-4 /hpf (0-2); Squamous Epithelial Cell Urine 0-4 (0-5)
[2020-05-26 21:24] LABS: Troponin 5 2HR 33.52 ng/L (0-10)
[2020-05-26 21:34] LABS: Troponin 5 2HR Delta -1.48 ABS# (0-10)
--- NOTE | 2020-05-26 22:30 | PC.NURSE ---
PT TEACHING DONE ON CLUSTERING OF CARES S/T CORONAVIRUS. PT VERBALIZES UNDERSTANDING. CALL LIGHT IN REACH. ISOLATION PRECAUTIONS OBSERVED.
--- NOTE | 2020-05-26 22:33 | PC.NURSE ---
C/O PAIN WITH COUGHING, PAIN MEDS GIVEN ORDERED. UPDATED VIA PHONE. POTASSIUM K-RIDER INFUSING WITHOUT DIFF, PT ON MONITOR.
[2020-05-26] MEDS: acetaminophen 325 mg Tablet 650 MG PO (23:22)
--- NOTE | 2020-05-26 23:40 | PC.NURSE ---
assumed care of pt at this time.
[2020-05-27] VITALS (13 sets, daily range): BP systolic 96–145; BP diastolic 60–93; PULSE 89–197; RESP 16–31; TEMP 37.9; O2SAT 85–93
[2020-05-27 00:33] LABS: Troponin 5 6HR 33.95 ng/L (0-10)
[2020-05-27 00:46] LABS: Troponin 5 6HR Delta -1.05 ng/L (0-12)
--- NOTE | 2020-05-27 01:52 | ECG_ITS ---
[facility] Test Date: 2020-05-27 Pat Name: Cassy Browne Department: Room: Gender: Female Electrocardiographic Technician: : 1955 Requested By: Remy Joya Order Number: [id number] Angel Luis MD: Inge Nelson M.D. Measurements Intervals [place] Rate: 173 P: GA: -1 QRS: 27 QRSD: 80 T: 209 QT: 222 QTc: 377 Interpretive Statements ATRIAL FIBRILLATION WITH RAPID VENTRICULAR RESPONSE ST DEVIATION AND MODERATE T-WAVE ABNORMALITY, CONSIDER LATERAL ISCHEMIA [-0.1+ mV T WAVE IN I/aVL/V5/V6] CRITICAL TEST RESULT Compared to ECG 05/26/2020 19:19:03 Possible ischemia now present Sinus rhythm no longer present T-wave abnormality still present Electronically Signed On 05-27-2020 20:28:44 CDT by Inge Nelson M.D. [email or web address]
[2020-05-27] MEDS: sodium chloride 0.9% 1,000 ML 999 ML IV (02:06)
[2020-05-27] MEDS: acetaminophen 500 mg Tablet 1000 MG PO (02:45)
--- NOTE | 2020-05-27 03:00 | PC.NURSE ---
0200 PT WENT INTO A-FIB WITH RATE 160'S-170'S. PT REMAINS ALERT AND ORIENTED IN ROOM, DENIES CHEST PAIN. NS BOLUS STARTED AT THIS TIME AND EKG OBTAINDE. AFTER OBTAINING THE EKG A CARDIZEM BOLUS WAS GIVEN AND A DRIP WAS STARTED AT 5MG/HR. PT TOLERATES WELL. 0215 PT HR REMAINS HIGH AND SPO2 IS DECREASING TO MID 80'S. O2 INCREASED AT THIS TIME AND CARDIZEM GTT INCREASED TO 10MG/HR. 0230 PT CONT TO BE IN A-FIB WITHOUT CHANGE IN HEART RATE. SPO2 REMAINS IN MID 80'S. PT CONT TO BE ALERT AND ORIENTED AND PARTICIPATES IN CARE. CARDIZEM GTT WAS UP TO 15MG/HR AND SHE WAS ALSO GIVEN ANOTHER CARDIZEM BOLUS. O2 WAS CHANGED TO OXYMASK AT THIS TIME AND ON AT 9L/MIN. PT'S TEMP WAS NOTED TO BE 100.2. 0250 O2 UP TO 10L/MIN VIA OXYMASK. 0255 O2 UP TO 15L/MIN VIA OXYMASK.
--- NOTE | 2020-05-27 03:15 | PC.NURSE ---
DR MURPHY IN TO SEE PT.
[2020-05-27 03:48] LABS: NT Pro B Type Natriuretic Pept 302 pg/mL (0-125)
[2020-05-27 03:51] LABS: ABG PCO2 33.6 mmHg (35-45); ABG PH Result 7.43 (7.35-7.45); Base Excess ABG -1.3 mmol/L (-2.0-2.0); Blood Gas Allen Test Pos; Blood Gas Sample Site Radial, left; Blood Gas Sample Type Arterial; HCO3 ABG 22.4 mmol/L (22-26); PO2 ABG 47.6 mmHg (80.0-100.0)
--- NOTE | 2020-05-27 04:09 | PC.NURSE ---
PT ASSISTED TO PRONE POSITION. NON-REBREATHER ON AT THIS TIME. DR MURPHY IN ROOM WITH PT. DISCUSSING INTUBATION AT THIS TIME.
[2020-05-27] MEDS: vecuronium 10 mg SDV 15 MG IVP (04:22)
--- NOTE | 2020-05-27 04:29 | XR_ITS ---
WS: [id number] PORTABLE CHEST HISTORY: post intubation COMPARISON: 05/26/2020 Endotracheal tube has been placed. The tip is in the proximal RIGHT mainstem bronchus. Bilateral perihilar infiltrates. Increasing consolidation and atelectasis involving the LEFT lower lo be. No pleural effusion or pneumothorax. Cardiac size: Normal. Mediastinum/Aorta: Mild atherosclerosis aorta. No osseous abnormality seen. XR/XR chest 1V portable [id number] IMPRESSION: 1. Endotracheal tube is in the proximal RIGHT mainstem bronchus and needs to b e retracted. 2. Increasing consolidation at the LEFT lung base may be the result of the end otracheal tube positioning or worsening pneumonia/edema. 3. Bilateral infiltrates, greatest perihilar. Pneumonia and edema within the d ifferential. Emergency department was called concerning the endotracheal tube position. Erika ent has been transferred to a different hospital.
[2020-05-27] MEDS: propofol 1,000 MG/100 ML INJ 2.9 MG IV (04:40)
--- NOTE | 2020-05-27 05:36 | PC.NURSE ---
0500 Pt was transfered out to [facility] via EMS. Pt was intubated prior to transfer. Pt also had NG and Walker placed prior to transfer. Belongings sent with Pt for transfer. Report was given to [facility] and to EMS prior to transfer.
== END 2020-05-27 05:00 | disposition short-term general hospital (02) ==
PROVIDERS: Emergency Medicine; Emergency Provider Emergency Medicine; PCP Family Medicine
DX: U07.1 COVID-19 (principal); J12.89 Other viral pneumonia; R09.02 Hypoxemia; I48.91 Unspecified atrial fibrillation
CPT/HCPCS: 12345; 31500; 36415; 36600; 51702; 71045; 71260; 74177; 76700; 80051; 80053; 81001; 82009; 82550; 82803; 82810; 83605; 83690; 83735; 83880; 83986; 84484; 85025; 85610; 87040; 93005; 96365; 96366; 96367; 96375; 99284; 99291; J2270; J2405; J2704; J3010; J3480; J3490; J7030; Q9967